=== PATIENT | male | born 1950 | race Caucasian/White ===

== ENCOUNTER → 2016-02-16 | Outpatient (CLI) | payer BC ==
[~2016-02-16] MED LIST: ALBU2.5V4 NEB; AMLO10TA2 PO; AMOX1TAB12 PO; ASPI-983 PO; CETI10TA20 PO; FOLI0.4T2 PO; GINK500C PO; METF500T4 PO; MULT-35 PO; OLME1TAB24 PO; PRED10TA22 PO; RT-ALBUINH IH; RT-ALBUTEROL SULF 2.5 MG/3 ML PRE-MIX VIAL INH ONE; [UNRECOGNIZED DRUG - CODE] PO
--- OUTSIDE RECORDS SUMMARY | 2016-02-16 09:30 | XMS REPORT | Continuity of Care Document ---
Author Author [facility] Organization [facility] Address Unknown Phone Unavailable Care Team Providers Care Landing Gear Mechanic Name Role Phone EDDIE KELLEY DO PCP Insurance Providers Payer Name Policy Number Subscriber Name Relationship [facility] [id number] Estelle Putnam 01 Advance Directives Directive Response Recorded Date/Time Advance Directives No 01/24/16 8:53am Health Care Power of Hold Worker No 01/24/16 8:53am Resuscitation Status Full Code 01/24/16 8:53am Problems No problem information available. Medications Current Home Medications Medication Dose Units Route Directions Days/Qty Instructions Start Date Metformin Hcl 500 Mg 500 Mg Oral Twice A Day 01/24/16 Amlodipine Besylate 10 Mg 10 Mg Oral Daily 01/24/16 Olmesartan/Hydrochlorothiazide 1 Each 1 Each Oral Daily 01/24/16 Albuterol Sulfate 8.5 Gm 1-2 Puff Inhalation Four Times Daily Social History Social History Problem Response Recorded Date/Time Alcohol Use Occasionally Uses 01/24/2016 8:53am Recreational Drug Use No 01/24/2016 8:53am Recent Foreign Travel No 01/24/2016 8:52am Recent Infectious Disease Exposure No 01/24/2016 8:52am Sexually Transmitted Disease No 01/24/2016 8:53am HIV/AIDS No 01/24/2016 8:53am Smoking Status Former Smoker 01/24/2016 8:53am Recent Hopitalizations No 01/24/2016 8:53am Sexually Transmitted Disease No 01/24/2016 8:53am Query Response Start Date Stop Date Smoking Status Former Smoker Hospital Discharge Instructions No hospital discharge instructions. Plan of Care Discharge Date 01/24/16 9:08am Prescriptions See Medication Section Functional Status No functional status results. Allergies, Adverse Reactions, Alerts No known allergies. Immunizations No immunization records. Vital Signs Acute Vital Signs Vital Response Date/Time Height (Feet) 5 feet 01/24/2016 8:46am Height (Inches) 8.00 inches 01/24/2016 8:46am Height (Calculated Centimeters) 172.434104 cm 01/24/2016 8:46am Weight (Pounds) 207 pounds 01/24/2016 8:46am Weight (Ounces) 0.0 oz 01/24/2016 8:46am Weight (Calculated Grams) 07095.62 gm 01/24/2016 8:46am Weight (Calculated Kilograms) 93.622880 kilograms 01/24/2016 8:46am Calculated BMI 31.5 01/24/2016 8:46am Results No known relevant diagnostic tests, laboratory data and/or discharge summary. Procedures No known history of procedures. Encounters Encounter Location Arrival/Admit Date Discharge/Depart Date Attending Provider Departed Clinic [facility] 01/24/16 8:43am 01/24/16 9: 08am KRISTAL RUIZ DO
== END ==
LOC: EDUNIT# 01-28 13:00 → RT 09:27
PROVIDERS: ATTEND Internal Medicine Critical Care Medicine
DX: R91.8 Other nonspecific abnormal finding of lung field (principal)
CPT/HCPCS: 94060; 94640; 94726; 94729

== ENCOUNTER 2016-02-25 10:30 | Inpatient (IN) | payer BC ==
[~2016-02-25] VITALS: Ht 172.7 cm; Wt 95.4 kg
[~2016-02-25 10:30] MED LIST changes: -ALBU2.5V4 NEB; -AMOX1TAB12 PO; -ASPI-983 PO; -CETI10TA20 PO; -FOLI0.4T2 PO; -GINK500C PO; -MULT-35 PO; -PRED10TA22 PO; -RT-ALBUTEROL SULF 2.5 MG/3 ML PRE-MIX VIAL INH ONE; -[UNRECOGNIZED DRUG - CODE] PO
[2016-02-25] MEDS ORDERED: MEROPENEM 1,000 MG in NORMAL SALINE (BAXTER MINI) 100 ML IV ONE ×2 (10:45→11:13)
[2016-02-25] MEDS ORDERED: VANCOMYCIN IV ADD-VANTAGE 1,000 MG in SODIUM CHLORIDE (ADD-VANTAGE) 250 ML IV ONE (10:45)
--- OUTSIDE RECORDS SUMMARY | 2016-02-25 11:03 | XMS REPORT | Continuity of Care Document ---
Author Author [facility] Organization [facility] Address Unknown Phone Unavailable Care Team Providers Care Skidway Worker Name Role Phone EDDIE KELLEY DO PCP Insurance Providers Payer Name Policy Number Subscriber Name Relationship [facility] [id number] Estelle Putnam 01 Advance Directives Directive Response Recorded Date/Time Advance Directives No 01/24/16 8:53am Health Care Power of Paperhanger Pipe No 01/24/16 8:53am Resuscitation Status Full Code [...] 8.00 inches 01/24/2016 8:46am Height (Calculated Centimeters) 172.503578 cm 01/24/2016 8:46am Weight (Pounds) 207 pounds 01/24/2016 8:46am Weight (Ounces) 0.0 oz 01/24/2016 8:46am Weight (Calculated Grams) 99287.62 gm 01/24/2016 8:46am Weight (Calculated Kilograms) 93.946763 kilograms 01/24/2016 8:46am Calculated BMI 31.5 01/24/2016 8:46am Results No known relevant diagnostic tests, laboratory data and/or discharge summary. Procedures No known history of procedures. Encounters Encounter Location Arrival/Admit Date Discharge/Depart Date Attending Provider Departed Clinic [facility] 01/24/16 8:43am 01/24/16 9: 08am KRISTAL RUIZ DO
[2016-02-25] MEDS ORDERED: methylPREDNISolone 40 MG/ML (Solu-MEDROL) VIAL IV SCH (12:00)
--- OUTSIDE RECORDS SUMMARY | 2016-02-25 12:38 | XMS REPORT | Continuity of Care Document ---
Author Author [facility] Organization [facility] Address Unknown Phone Unavailable Care Team Providers Care Talent Development Director Name Role Phone EDDIE KELLEY DO PCP Insurance Providers Payer Name Policy Number Subscriber Name Relationship [facility] [id number] Estelle Putnam 01 Advance Directives Directive Response Recorded Date/Time Advance Directives No 01/24/16 8:53am Health Care Power of Mat Worker No 01/24/16 8:53am Resuscitation Status Full [...] 8.00 inches 01/24/2016 8:46am Height (Calculated Centimeters) 172.744973 cm 01/24/2016 8:46am Weight (Pounds) 207 pounds 01/24/2016 8:46am Weight (Ounces) 0.0 oz 01/24/2016 8:46am Weight (Calculated Grams) 64871.62 gm 01/24/2016 8:46am Weight (Calculated Kilograms) 93.561113 kilograms 01/24/2016 8:46am Calculated BMI 31.5 01/24/2016 8:46am Results No known relevant diagnostic tests, laboratory data and/or discharge summary. Procedures No known history of procedures. Encounters Encounter Location Arrival/Admit Date Discharge/Depart Date Attending Provider Departed Clinic [facility] 01/24/16 8:43am 01/24/16 9: 08am KRISTAL RUIZ DO
[2016-02-25 13:00] VITALS: BP 152/86
[2016-02-25] MEDS ORDERED: ALBU2.5V4 NEB (13:14)
[2016-02-25] MEDS ORDERED: AMOX1TAB12 PO (13:14)
[2016-02-25] MEDS ORDERED: VANCOMYCIN INJECTION 2,000 MG in NS IV 500 ML 500 ML IV NR (13:15)
--- NOTE | 2016-02-25 13:26 | Pulmonary Consultation ---
History of Present Illness History of Present Illness Date of Consultation 02/25/16 13:15 Date of Admission 02/25/16 History of Present Illness 65 yo male who was seen in our office today d/t failure of outpatient treatment for pneumonia. (He was directly admitted to floor) He had been treated with Levaquin, azithromycin, and Omnicef and presented today with c/o worsening cough /wheeze, increase shortness of breath, and reported low grade fever at home for two days. Pt ambulated in office today showed oxygen saturation levels of 86% on RA. Patient was placed on oxygen and given 125mg Solumedrol, IM and breathing treatment. Spoke with Dr. Leyva and with Dr. Saez who has graciously agreed to admit pt. Previous CT had shown RONNIE lung mass with MLA; pt was bronched on 01/28/16 w/ebus. Allergies and Home Medications Allergies Coded Allergies: No Known Drug Allergies (Unverified , 01/24/16) Home Medications Albuterol Sulfate 8.5 Gm Hfa.aer.ad 2 PUFF IH QID PRN PRN SHORTNESS OF BREATH ( Reported) Albuterol Sulfate 2.5 Mg/3 Ml Vial.neb 2.5 MG NEB Q6H PRN PRN WHEEZING (Reported ) Amlodipine Besylate 10 Mg Tablet 10 MG PO DAILY (Reported) Aspirin 81 Mg Tablet.dr 81 MG PO DAILY (Reported) Cetirizine HCl 10 Mg Tablet 10 MG PO HS (Reported) Folic Acid 0.4 Mg Tablet 0.4 MG PO DAILY (Reported) Ginkgo Biloba 500 Mg Capsule 500 MG PO DAILY (Reported) Guaifenesin/Dextromethorphan 1 Each Tablet 1 TAB PO HS (Reported) Metformin HCl 500 Mg Tablet 500 MG PO BID (Reported) Multivitamin 1 Each Tablet 1 TAB PO DAILY (Reported) Olmesartan/Hydrochlorothiazide 1 Each Tablet 1 TAB PO DAILY (Reported) Past Plhroqx-Agayjy-Xffwxp Hx Patient Social History Alcohol Use: Denies Use Recreational Drug Use: No Smoking Status: Former Smoker Type Used: Cigarettes Recent Foreign Travel: No Contact w/Someone Who Travel: No Recent Hopitalizations: No Immunizations Up To Date Date of Pneumonia Vaccine: Jan 23, 2014 Date of Influenza Vaccine: Oct 25, 2015 Seasonal Allergies Seasonal Allergies: Yes (MILD) Surgeries HX Surgeries: Yes (HERNIA REPAIR) Respiratory Hx Respiratory Disorders: Yes (COUGH-LUNG MASS) Respiratory Disorders: Pneumonia Cardiovascular Hx Cardiac Disorders: Yes Cardiac Disorders: Hypertension Neurological Hx Neurological Disorders: No Reproductive System Hx Reproductive Disorders: No Sexually Transmitted Disease: No HIV/AIDS: No Genitourinary Hx Genitourinary Disorders: Yes (POSSIBLE PROSTATE) Genitourinary Disorders: Prostate Problems Gastrointestinal Hx Gastrointestinal Disorders: Yes (OCCASIONAL ) Gastrointestinal Disorders: Gastroesophageal Reflux, Polyps Musculoskeletal Hx Musculoskeletal Disorders: No Endocrine Hx Endocrine Disorders: Yes Endocrine Disorders: Diabetes, Non-Insulin dep HEENT HX ENT Disorders: Yes (GLASSES) Loss of Vision: Bilateral Hearing Impairment: Denies Cancer Hx Cancer: No Psychosocial Hx Psychiatric Problems: No Integumentary HX Skin/Integumentary Disorder: No Blood Transfusions Hx Blood Disorders: No Review of Systems Constitutional: : Chills: Fever: Sweats: Weakness Eyes: No: Conjunctivae inflammation, Eyelid inflammation, Other, Pain, Redness , Vision change ENT: No: Ear discharge, Ear pain, Mouth pain, Mouth swelling, Nose congestion, Nose discharge, Nose pain, Other, Throat pain, Throat swelling Respiratory: : Cough: SOB with excertion: Shortness of breath: Sputum (clear to yellow ): Wheezing: Wheezing Cardiovascular: No: Chest Pain, Edema, Lt Headedness, Orthopnea, Other, Palpitations, Paroxysmal Noc. Dyspnea Gastrointestinal: No: Abdominal Pain, Constipation, Diarrhea, Hematochezia, Melena, Nausea, Other, Vomiting Genitourinary: No Dysuria, No Frequency, No Incontinence, No Hematuria, No Retention, No Other Musculoskeletal: No: arm pain, back pain, foot pain, hand pain, leg pain, neck pain, other, shoulder pain Skin: No: Bruising, Jaundice, Lesions, Other, Rash Neurological: No: Change in speech, Confusion, Incoordination, Numbness, Other , Seizures, Weakness Exam Exam General Appearance: WD/WN Anxious Mild Distress HEENT: PERRL/EOMI Neck: Full Range of Motion Normal Inspection Non Tender Supple Respiratory: Chest Non Tender No Accessory Muscle Use Crackles Decreased Breath Sounds Expiration Wheezing Cardiovascular: Tachycardia Capillary Refill: Less Than 3 Seconds Gastrointestinal: normal bowel sounds non tender soft Extremity: Normal Capillary Refill Normal Inspection Normal Range of Motion Non Tender No Calf Tenderness No Pedal Edema Neurologic/Psychiatric: Alert Oriented x3 No Motor/Sensory Deficits Normal Mood/Affect reimbursement liaison II-XII Norm as Tested Skin: Normal Color Warm/Dry Assessment/Plan Assessment/Plan Pneumonia - spoke with Dr. Leyva regarding treatment plan -kulkarni cx -cbc w/diff -cmp -mag/phos -Merrem and Vanco -cxr -PREVIOUS TEST: CT showed RONNIE lung mass with MLA; pt was bronched on 01/28/16 w/ebus . -I/S -Influenza a/b swab Dyspnea -duoneb q6hr Hypoxemia -wear oxygen to keep sats >92% DVT/VTE- protonix and scd MEENU LAMAS APRN Feb 25, 2016 13:26
[2016-02-25] MEDS ORDERED: GINK500C PO (13:31)
[2016-02-25] MEDS ORDERED: [UNRECOGNIZED DRUG - CODE] PO (13:31)
[2016-02-25] MEDS ORDERED: MULT-35 PO (13:31)
[2016-02-25] MEDS ORDERED: FOLI0.4T2 PO (13:31)
[2016-02-25] MEDS ORDERED: ASPI-983 PO (13:31)
[2016-02-25] MEDS ORDERED: CETI10TA20 PO (13:31)
[2016-02-25 13:36] LABS: BILIRUBIN,URINE NEGATIVE (NEGATIVE); KETONES,URINE NEGATIVE (NEGATIVE); LEUKOCYTE ESTERASE ,URINE NEGATIVE (NEGATIVE); NITRITE,URINE NEGATIVE (NEGATIVE); PH,URINE 7 (5-9); PROTEIN,URINE NEGATIVE (NEGATIVE); UROBILINOGEN,URINE NORMAL (NORMAL)
--- NOTE | 2016-02-25 13:43 | Diagnostic Imaging Report ---
INDICATION: Pneumonia. TECHNIQUE: PA and lateral views of the chest were obtained. COMPARISON: 01/26/2016. FINDINGS: The overall heart size and pulmonary vascularity are now within normal limits. There is abnormal increased density in the left hilum. This region was obscured by infiltrate on the previous study. No pneumothorax is identified. There is no significant pleural fluid or other acute abnormality. IMPRESSION: Overall improvement in aeration of the lungs with residual abnormal increased density in the left hilum. While this could be due to residual infiltrate, a left perihilar mass or adenopathy is not excluded. This could be further assessed with bronchoscopy or followup CT imaging of the chest. Dictated by: Dictated on workstation # [id number]
[2016-02-25 13:51] LABS: WBC,URINE RARE /HPF
[2016-02-25] MEDS ORDERED: CATHETER FLUSH 10 ML SYR IV PRN (14:00)
[2016-02-25 14:11] LABS: BASOPHILS % (AUTO) 1 % (0-10); EOSINOPHILS # (AUTO) 0.1 10^3/uL (0.0-0.3); EOSINOPHILS % (AUTO) 2 % (0-10); LYMPHOCYTES # (AUTO) 0.9 X 10^3 (1.0-4.0); LYMPHOCYTES % (AUTO) 16 % (12-44); MEAN CORPUSCULAR HEMOGLOBIN 29 PG (25-34); MEAN CORPUSCULAR HGB CONC 35 G/DL (32-36); MEAN CORPUSCULAR VOLUME 84 FL (80-99); MONOCYTES # (AUTO) 0.1 X 10^3 (0.0-1.0); MONOCYTES % (AUTO) 1 % (0-12); NEUTROPHILS # (AUTO) 4.5 X 10^3 (1.8-7.8); NEUTROPHILS % (AUTO) 81 % (42-75); PLATELET COUNT 233 10^3/uL (130-400); RED BLOOD COUNT 4.72 10^6/uL (4.35-5.85); RED CELL DISTRIBUTION WIDTH 15.7 % (10.0-14.5); WHITE BLOOD COUNT 5.5 10^3/uL (4.3-11.0)
[2016-02-25] MEDS: NS IV 1000 ML 1,000 ML IV SCH (14:15)
[2016-02-25] MEDS: RT-ALBUTEROL/IPRATROPIUM 3 ML (DUONEB) VIAL INH SCH ×2 (14:19→19:55)
[2016-02-25 14:27] LABS: ANISOCYTOSIS SLIGHT; BAND NEUTROPHILS 0 %; BASOPHILS % (MANUAL) 1 %; EOSINOPHILS % (MANUAL) 2 %; LYMPHOCYTES % (MANUAL) 15 %; NEUTROPHILS % (MANUAL) 82 %
[2016-02-25 14:28] LABS: ALANINE AMINOTRANSFERASE 21 U/L (0-55); ALBUMIN 4.1 G/DL (3.2-4.5); ANION GAP 10 MMOL/L (5-14); ASPARTATE AMINO TRANSFERASE 15 U/L (5-34); BILIRUBIN,TOTAL 0.4 MG/DL (0.1-1.0); BLOOD UREA NITROGEN 12 MG/DL (7-18); BUN/CREATININE RATIO 14; CALCIUM 9.5 MG/DL (8.5-10.1); CARBON DIOXIDE 25 MMOL/L (21-32); CHLORIDE 101 MMOL/L (98-107); CREATININE SERUM 0.88 MG/DL (0.60-1.30); GFR ESTIMATED > 60; GLUCOSE 214 MG/DL (70-105); PHOSPHORUS 1.8 MG/DL (2.3-4.7); SODIUM 136 MMOL/L (135-145); TOTAL PROTEIN 7.2 G/DL (6.4-8.2)
[2016-02-25 16:00] VITALS: BP 161/82
[2016-02-25] MEDS: metFORMIN 500 MG (GLUCOPHAGE) TAB PO SCH (16:05)
[2016-02-25] MEDS: inSUlin ASPART (NovoLOG) 1 UNIT/0.01 ML (CHARGE PER UNIT) SC SCH ×2 (16:06→21:19)
--- NOTE | 2016-02-25 16:23 | History & Physical-Hospitalist ---
HPI History of Present Illness: HPI/Chief Complaint this is a 65-year-old white male who began having upper respiratory tract difficulties and symptoms in mid December 2015. Workup showed a left upper lobe lung mass. E bus and bronchoscopy were negative for malignancy or evidently infection. He has been treated with Zithromax, Omnicef, Levaquin and had begun to get better. He had begun weight gaining weight again in 2 weeks ago was not completely well but much better. About 3 days ago he began having increased shortness of breath coughing and orthopnea. His cough is worse when lying down. He does note that they have mold in his bathroom at home. He was seen by Dr. Leyva and admitted today because of recurrent pneumonia in the left upper lobe and hypoxia. Exam Limitations: no limitations Date Seen 02/25/16 Attending Physician Bronwyn Saez DO PCP Juve Lundberg DO Referring Physician Date of Admission Feb 25, 2016 at 12:30 Home Medications & Allergies Home Medications Reviewed patient Home Medication Reconciliation Form Allergies Coded Allergies: No Known Drug Allergies (Unverified , 01/24/16) Past Ccagcgi-Xxqwgb-Jgugzz Hx Patient Social History Marrital Status: Employed/Student: employed Alcohol Use: Denies Use Recreational Drug Use: No Smoking Status: Former Smoker Type Used: Cigarettes Physical Abuse Screen: No Sexual Abuse: No Recent Foreign Travel: No Contact w/other who traveled: No Recent Hopitalizations: No Recent Infectious Disease Expo: No Immunizations Up To Date Date of Pneumonia Vaccine: Jan 23, 2014 Date of Influenza Vaccine: Oct 25, 2015 Seasonal Allergies Seasonal Allergies: Yes (MILD) Surgeries HX Surgeries: Yes (HERNIA REPAIR) Respiratory Hx Respiratory Disorders: Yes (COUGH-LUNG MASS) Cardiovascular Hx Cardiovascular Disorders: Yes Cardiac Disorders: Hypertension Neurological Hx Neurological Disorders: No Reproductive System Hx Reproductive Disorders: No Sexually Transmitted Disease: No HIV/AIDS: No Genitourinary Hx Genitourinary Disorders: Yes (POSSIBLE PROSTATE) Genitourinary Disorders: Prostate Problems Gastrointestinal Hx Gastrointestinal Disorders: Yes (OCCASIONAL ) Gastrointestinal Disorders: Gastroesophageal Reflux, Polyps, Hiatal Hernia Musculoskeletal Hx Musculoskeletal Disorders: No Endocrine Hx Endocrine Disorders: Yes Endocrine Disorders: Diabetes, Non-Insulin dep HEENT HX ENT Disorders: Yes (GLASSES) Loss of Vision: Bilateral Hearing Impairment: Denies Cancer Hx Cancer: No Psychosocial Hx Psychiatric Problems: No Integumentary HX Skin/Integumentary Disorder: No Blood Transfusions Hx Blood Disorders: No Family Medical History Significant Family History: Heart Disease Review of Systems Constitutional: weight loss other (cough) EENTM: no symptoms reported Respiratory: cough dyspnea on exertion short of breath wheezing Cardiovascular: no symptoms reported Gastrointestinal: no symptoms reported Genitourinary: hesitancy Musculoskeletal: no symptoms reported Skin: no symptoms reported Psychiatric/Neurological: No Symptoms Reported Physical Exam Physical Exam Vital Signs Vital Sign - Last 12Hours 02/25/16 02/25/16 13:30 14:20 Pulse Ox 88 O2 Delivery Nasal Cannula O2 Flow Rate 2.00 Capillary Refill : Less Than 3 Seconds General Appearance: No Apparent Distress WD/WN HEENT: Normal ENT Inspection Neck: Supple Respiratory: Crackles Wheezing Cardiovascular: Regular Rate, Rhythm No Gallop No Murmur Gastrointestinal: Non Tender Soft Back: No CVA Tenderness Extremity: No Calf Tenderness Neurologic/Psychiatric: Alert Oriented x3 No Motor/Sensory Deficits Normal Mood/Affect slipper maker II-XII Norm as Tested Skin: Normal Color Warm/Dry Lymphatic: No Adenopathy Results Results/Procedures Lab Laboratory Tests 02/25/16 14:00 Assessment/Plan Admission Diagnosis 1. pneumonia-left perihilar infiltrate. possibly hilar adenopathy. patient is afebrile, white count is normal , however he has had progressive hypoxia and symptoms. situation could be sent to the reactive airway disease secondary to fungal infection. antibiotics per Dr. Leyva. 2. Hypertension 3. Type II diabetes Clinical Quality Measures DVT/VTE Risk/Contraindication: Risk Factor Score Per Nursin RFS Level Per Nursing on Admit: 4+=Very High RAEGAN NEFF MD Feb 25, 2016 16:23
[2016-02-25] MEDS: MEROPENEM 500 MG/NS 100 ML IVPB IV SCH ×2 (17:08)
[2016-02-25] MEDS: ENOXAPARIN 40 MG/0.4 ML (LOVENOX) SYR SC SCH (17:12)
[2016-02-25 20:00] VITALS: BP 157/82
[2016-02-25] MEDS: methylPREDNISolone 40 MG/ML (Solu-MEDROL) VIAL IV SCH (21:18)
[2016-02-25] MEDS ORDERED: ZOLPIDEM 5 MG (AMBIEN) TAB PO PRN (21:45)
[2016-02-26] VITALS: BP 124/76
[2016-02-26] MEDS: NS IV 1000 ML 1,000 ML IV SCH ×2 (00:05→07:08)
[2016-02-26] MEDS: MEROPENEM 500 MG/NS 100 ML IVPB IV SCH ×8 (00:13→18:30)
[2016-02-26] MEDS: VANCOMYCIN 1500 MG/NS 500 ML IVPB IV SCH ×4 (01:41→14:18)
[2016-02-26] MEDS: RT-ALBUTEROL/IPRATROPIUM 3 ML (DUONEB) VIAL INH SCH ×4 (02:27→21:05)
[2016-02-26] MEDS: methylPREDNISolone 40 MG/ML (Solu-MEDROL) VIAL IV SCH ×4 (03:42→20:46)
[2016-02-26 04:00] VITALS: BP 127/65
[2016-02-26] MEDS: PANTOPRAZOLE 40 MG (PROTONIX) TAB PO SCH (06:26)
[2016-02-26] MEDS: metFORMIN 500 MG (GLUCOPHAGE) TAB PO SCH ×2 (06:26→16:58)
[2016-02-26] MEDS: inSUlin ASPART (NovoLOG) 1 UNIT/0.01 ML (CHARGE PER UNIT) SC SCH ×4 (06:26→20:46)
[2016-02-26 08:00] VITALS: BP 159/83
[2016-02-26] MEDS: ASPIRIN E.C. 81 MG (ECOTRIN) TAB PO SCH (08:51)
[2016-02-26] MEDS: OLMESARTAN 20 MG (BENICAR) TABLET PO SCH (08:51)
[2016-02-26] MEDS: amLODIPine 10 MG (NORVASC) TAB PO SCH (08:51)
[2016-02-26] MEDS: HYDROCHLOROTHIAZIDE 25 MG (HCTZ) TAB PO SCH (08:51)
[2016-02-26] MEDS ORDERED: HYDROCHLOROTHIAZIDE PO SCH (09:00)
[2016-02-26] MEDS ORDERED: OLMESARTAN PO SCH (09:00)
[2016-02-26] MEDS ORDERED: [UNRECOGNIZED DRUG - OTHER] PO SCH (09:00)
--- NOTE | 2016-02-26 11:48 | Progress Note-Hospitalist ---
Subjective HPI/CC On Admission this is a 65-year-old white male who began having upper respiratory tract difficulties and symptoms in mid December 2015. Workup showed a left upper lobe lung mass. E bus and bronchoscopy were negative for malignancy or evidently infection. He has been treated with Zithromax, Omnicef, Levaquin and had begun to get better. He had begun weight gaining weight again in 2 weeks ago was not completely well but much better. About 3 days ago he began having increased shortness of breath coughing and orthopnea. His cough is worse when lying down. He does note that they have mold in his bathroom at home. He was seen by Dr. Leyva and admitted today because of recurrent pneumonia in the left upper lobe and hypoxia. Date Seen 02/26/16 Subjective/Events-last exam patient says he is feeling better today. He continues to be wheezy. He feels less so than before. He does note that he does have a lot of mold in his house. He discussed that his high blood sugars are related to the high steroids that he is on Review of Systems Pulmonary: Dyspnea Cough Objective Exam Vital Signs Vital Sign - Last 12Hours 02/25/16 02/25/16 13:00 13:30 Temp 97.0 Pulse 91 Resp 20 B/P 152/86 Pulse Ox 91 O2 Delivery Room Air O2 Flow Rate 2.00 Capillary Refill : Less Than 3 Seconds General Appearance: WD/WN HEENT: Normal ENT Inspection Respiratory: Crackles Rhonci Wheezing Cardiovascular: Regular Rate, Rhythm No Gallop No Murmur Gastrointestinal: Soft Results/Procedures Lab Laboratory Tests 02/25/16 14:00 Assessment/Plan Assessment and Plan Assess & Plan/Chief Complaint 1. pneumonia-left perihilar infiltrate. possibly hilar adenopathy. patient is afebrile, white count is normal , however he has had progressive hypoxia and symptoms. situation could be secondary to reactive airway disease secondary to fungal infection. antibiotics per Dr. Leyva. 2. Hypertension 3. Type II diabetes-out of control secondary to steroids 4. Possible spirochetes in the sputum consider adding macrolide RAEGAN NEFF MD Feb 26, 2016 11:48
[2016-02-26 11:59] VITALS: BP 132/68
[2016-02-26 15:49] VITALS: BP 138/71
[2016-02-26] MEDS: ENOXAPARIN 40 MG/0.4 ML (LOVENOX) SYR SC SCH (16:56)
[2016-02-26 19:01] VITALS: BP 154/81
[2016-02-27] VITALS: BP 147/74
[2016-02-27] MEDS: MEROPENEM 500 MG/NS 100 ML IVPB IV SCH ×8 (00:15→17:34)
[2016-02-27] MEDS: RT-ALBUTEROL/IPRATROPIUM 3 ML (DUONEB) VIAL INH SCH ×4 (02:45→20:11)
[2016-02-27] MEDS: methylPREDNISolone 40 MG/ML (Solu-MEDROL) VIAL IV SCH ×4 (03:23→21:44)
[2016-02-27] MEDS: VANCOMYCIN 1500 MG/NS 500 ML IVPB IV SCH ×4 (03:23→14:08)
[2016-02-27 04:00] VITALS: BP 146/75
[2016-02-27] MEDS: inSUlin ASPART (NovoLOG) 1 UNIT/0.01 ML (CHARGE PER UNIT) SC SCH ×4 (06:29→21:45)
[2016-02-27] MEDS: metFORMIN 500 MG (GLUCOPHAGE) TAB PO SCH ×2 (06:30→16:04)
[2016-02-27] MEDS: PANTOPRAZOLE 40 MG (PROTONIX) TAB PO SCH (06:30)
[2016-02-27] MEDS ORDERED: ANTACID SUSP 30 ML UDC (MYLANTA) PO PRN (07:00)
[2016-02-27 08:00] VITALS: BP 165/85
[2016-02-27] MEDS: OLMESARTAN 20 MG (BENICAR) TABLET PO SCH (09:11)
[2016-02-27] MEDS: HYDROCHLOROTHIAZIDE 25 MG (HCTZ) TAB PO SCH (09:11)
[2016-02-27] MEDS: ASPIRIN E.C. 81 MG (ECOTRIN) TAB PO SCH (09:11)
[2016-02-27] MEDS: amLODIPine 10 MG (NORVASC) TAB PO SCH (09:12)
[2016-02-27 12:00] VITALS: BP 127/70
--- NOTE | 2016-02-27 12:29 | Progress Note-Hospitalist ---
Subjective HPI/CC On Admission this is a 65-year-old white male who began having upper respiratory tract difficulties and symptoms in mid December 2015. Workup showed a left upper lobe lung mass. E bus and bronchoscopy were negative for malignancy or evidently infection. He has been treated with Zithromax, Omnicef, Levaquin and had begun to get better. He had begun weight gaining weight again in 2 weeks ago was not completely well but much better. About 3 days ago he began having increased shortness of breath coughing and orthopnea. His cough is worse when lying down. He does note that they have mold in his bathroom at home. He was seen by Dr. Leyva and admitted today because of recurrent pneumonia in the left upper lobe and hypoxia. Date Seen 02/27/16 Subjective/Events-last exam H and is feeling better today. Had one paroxysm of coughing this morning. Review of Systems Pulmonary: Dyspnea Cough Objective Exam Vital Signs Vital Sign - Last 12Hours 02/25/16 02/25/16 13:00 13:30 Temp 97.0 Pulse 91 Resp 20 B/P 152/86 Pulse Ox 91 O2 Delivery Room Air O2 Flow Rate 2.00 Capillary Refill : Less Than 3 Seconds General Appearance: No Apparent Distress WD/WN HEENT: Normal ENT Inspection Neck: Supple Respiratory: Crackles Expiration (improved) Wheezing Cardiovascular: Tachycardia Gastrointestinal: Soft Assessment/Plan Assessment and Plan Assess & Plan/Chief Complaint 1. pneumonia-left perihilar infiltrate. possibly hilar adenopathy. patient is afebrile, white count is normal , however he has had progressive hypoxia and symptoms. situation could be secondary to reactive airway disease secondary to fungal infection. antibiotics per Dr. Leyva.patient is improved today so we' ll drop the steroids. Will recheck labs in the morning and chest x-ray 2. Hypertension 3. Type II diabetes-out of control secondary to steroids 4. Possible spirochetes in the sputum consider adding macrolide RAEGAN NEFF MD Feb 27, 2016 12:29
[2016-02-27] MEDS ORDERED: TROUGH ORDER-PHARMACY XX NR (13:00)
--- NOTE | 2016-02-27 13:42 | Diagnostic Imaging Report ---
Indication: Followup pneumonia. Comparison: 02/25/2016. Findings: Two views of the chest are obtained. Heart size is normal. The pulmonary vessels appear unremarkable. There is no pneumothorax or pleural fluid suspected. There is persistent abnormal left perihilar mass-like density which appears minimally improved to similar to the prior study. There is new minimal linear atelectasis in the lateral left lung base. The lungs are otherwise clear. No pleural fluid is suspected. The osseous structures appear unremarkable. Impression: Minimally improved to stable masslike density over the left hilum remains indeterminate. This may be secondary to slowly resolving infiltrate although an underlying mass is difficult to exclude. Continued followup is suggested. Dictated by: Dictated on workstation # [id number]
[2016-02-27 16:00] VITALS: BP 140/77
[2016-02-27] MEDS: ENOXAPARIN 40 MG/0.4 ML (LOVENOX) SYR SC SCH (16:04)
[2016-02-27 20:00] VITALS: BP 135/75
[2016-02-28 00:01] VITALS: BP 146/80
[2016-02-28] MEDS: MEROPENEM 500 MG/NS 100 ML IVPB IV SCH ×4 (00:03→06:48)
[2016-02-28] MEDS ORDERED: VANCOMYCIN 1,750 MG/NS 500 ML IVPB IV SCH ×2 (02:00)
[2016-02-28] MEDS: RT-ALBUTEROL/IPRATROPIUM 3 ML (DUONEB) VIAL INH SCH ×3 (02:52→09:42)
[2016-02-28] MEDS: methylPREDNISolone 40 MG/ML (Solu-MEDROL) VIAL IV SCH ×2 (03:15→09:52)
[2016-02-28 04:00] VITALS: BP 160/71
[2016-02-28] MEDS: PANTOPRAZOLE 40 MG (PROTONIX) TAB PO SCH (06:49)
[2016-02-28] MEDS: inSUlin ASPART (NovoLOG) 1 UNIT/0.01 ML (CHARGE PER UNIT) SC SCH (06:49)
[2016-02-28] MEDS: metFORMIN 500 MG (GLUCOPHAGE) TAB PO SCH (06:49)
[2016-02-28 07:08] LABS: BASOPHILS % (AUTO) 0 % (0-10); EOSINOPHILS % (AUTO) 0 % (0-10); LYMPHOCYTES # (AUTO) 0.8 X 10^3 (1.0-4.0); LYMPHOCYTES % (AUTO) 13 % (12-44); MEAN CORPUSCULAR HEMOGLOBIN 29 PG (25-34); MEAN CORPUSCULAR HGB CONC 34 G/DL (32-36); MEAN CORPUSCULAR VOLUME 84 FL (80-99); MEAN PLATELET VOLUME 9.6 FL (7.4-10.4); MONOCYTES # (AUTO) 0.3 X 10^3 (0.0-1.0); MONOCYTES % (AUTO) 4 % (0-12); NEUTROPHILS # (AUTO) 5.1 X 10^3 (1.8-7.8); NEUTROPHILS % (AUTO) 83 % (42-75); PLATELET COUNT 186 10^3/uL (130-400); RED BLOOD COUNT 4.28 10^6/uL (4.35-5.85); RED CELL DISTRIBUTION WIDTH 15.7 % (10.0-14.5); WHITE BLOOD COUNT 6.1 10^3/uL (4.3-11.0)
[2016-02-28 07:32] LABS: ALANINE AMINOTRANSFERASE 24 U/L (0-55); ALBUMIN 3.7 G/DL (3.2-4.5); ANION GAP 7 MMOL/L (5-14); ASPARTATE AMINO TRANSFERASE 16 U/L (5-34); BILIRUBIN,TOTAL 0.4 MG/DL (0.1-1.0); BLOOD UREA NITROGEN 18 MG/DL (7-18); BUN/CREATININE RATIO 23; CALCIUM 8.4 MG/DL (8.5-10.1); CARBON DIOXIDE 25 MMOL/L (21-32); CHLORIDE 105 MMOL/L (98-107); GFR ESTIMATED > 60; GLUCOSE 183 MG/DL (70-105); POTASSIUM 3.8 MMOL/L (3.6-5.0); SODIUM 137 MMOL/L (135-145); TOTAL PROTEIN 6.1 G/DL (6.4-8.2)
[2016-02-28 07:42] LABS: ERYTHROCYTE SEDIMENTATION RATE 8 MM/HR (0-30)
--- NOTE | 2016-02-28 07:44 | Pulmonary Progress Note ---
Subjective Subjective/Events-last exam Pt feels much improved. Exam Exam Vital Signs Date Time Temp Pulse Resp B/P Pulse Ox O2 Delivery O2 Flow Rate FiO2 02/28/16 03:21 95 02/28/16 00:01 97.5 95 20 146/80 98 Room Air 02/27/16 21:00 Room Air 02/27/16 20:11 97 02/27/16 20:00 98.4 116 18 135/75 98 Room Air 02/27/16 16:00 97.9 115 18 140/77 94 Room Air 02/27/16 15:11 95 02/27/16 13:00 109 02/27/16 12:00 98.1 111 18 127/70 91 Room Air 02/27/16 09:36 92 02/27/16 09:00 94 Nasal Cannula 02/27/16 08:00 98.7 104 20 165/85 94 Room Air I & O 02/28/16 07:00 Intake Total 2237.5 ml Balance 2237.5 ml General Appearance: No Apparent Distress WD/WN HEENT: Normal ENT Inspection Neck: Supple Respiratory: Crackles Expiration (improved) Wheezing Cardiovascular: Tachycardia Capillary Refill: Less Than 3 Seconds Gastrointestinal: normal bowel sounds non tender soft Extremity: No Calf Tenderness Neurologic/Psychiatric: Alert Oriented x3 No Motor/Sensory Deficits Normal Mood/Affect shingle grader II-XII Norm as Tested Skin: Normal Color Warm/Dry Lymphatic: No Adenopathy Results Lab Laboratory Tests 02/28/16 06:58 Assessment/Plan Assessment/Plan Pneumonia -Luciano cultures, Influenza are negative Dyspnea -duoneb q6hr Hypoxemia -wear oxygen to keep sats >92% DVT/VTE- protonix and scd Pt is doing better. Cultures are negative. Pt is ok for discharge from pulmonary standpoint with steroid taper. No Abx needed at this point. F/u in office after CT of chest. Clinical Quality Measures DVT/VTE Risk/Contraindication: Risk Factor Score Per Nursin RFS Level Per Nursing on Admit: 4+=Very High KRISTAL RUIZ DO Feb 28, 2016 07:44 KRISTAL RUIZ DO Feb 28, 2016 07:44
[2016-02-28 08:00] VITALS: BP 161/86
[2016-02-28] MEDS ORDERED: PRED10TA22 PO (08:37)
--- NOTE | 2016-02-28 08:56 | Progress Note-Hospitalist ---
Progress Note HPI/CC on Admission this is a 65-year-old white male who began having upper respiratory tract difficulties and symptoms in mid December 2015. Workup showed a left upper lobe lung mass. E bus and bronchoscopy were negative for malignancy or evidently infection. He has been treated with Zithromax, Omnicef, Levaquin and had begun to get better. He had begun weight gaining weight again in 2 weeks ago was not completely well but much better. About 3 days ago he began having increased shortness of breath coughing and orthopnea. His cough is worse when lying down. He does note that they have mold in his bathroom at home. He was seen by Dr. Leyva and admitted because of recurrent pneumonia in the left upper lobe and hypoxia. He is doing much better today. He is not requiring oxygen while sitting in bed. His chest xray is much improved. He has minimal wheezing on the left side. AFVSS, Pleasant, O x 3 RRR, CTAB decreased breath sounds noted Progress Notes/Assess & Plan Date Seen 02/28/16 Admission Dx/Process 1. pneumonia 2. left upper lung mass 3. DM 4. HTN 5. hypoxia 6. Smoking history Diagonsis/Assessment & Plan 1. pneumonia 2. left upper lung mass 3. DM 4. HTN 5. hypoxia 6. Smoking history -ready for discharge today -will have prednisone taper as outpatient -f/u CT in 4-6 weeks to follow lung mass -f/u with Dr. Leyva as outpatient -f/u with Dr. Lundberg -will obtain oxygen desaturation walking test before discharge Final Diagnosis 1. pneumonia 2. left upper lung mass 3. DM 4. HTN 5. hypoxia 6. Smoking history ALONA GOINS DO Feb 28, 2016 08:56
[2016-02-28] MEDS: ASPIRIN E.C. 81 MG (ECOTRIN) TAB PO SCH (09:00)
[2016-02-28] MEDS: HYDROCHLOROTHIAZIDE 25 MG (HCTZ) TAB PO SCH (09:00)
[2016-02-28] MEDS: OLMESARTAN 20 MG (BENICAR) TABLET PO SCH (09:00)
[2016-02-28] MEDS: amLODIPine 10 MG (NORVASC) TAB PO SCH (09:00)
--- NOTE | 2016-02-28 09:33 | Discharge Summary-Hospitalist ---
Diagnosis/Chief Complaint Date of Admission Feb 25, 2016 at 12:30 Date of Discharge Discharge Date: Feb 28, 2016 Admission Diagnosis 1. pneumonia 2. left upper lung mass 3. DM 4. HTN 5. hypoxia 6. Smoking history Discharge Diagnosis 1. pneumonia 2. left upper lung mass 3. DM 4. HTN 5. hypoxia 6. Smoking history -ready for discharge today -will have prednisone taper as outpatient -f/u CT in 4-6 weeks to follow lung mass -f/u with Dr. Leyva as outpatient -f/u with Dr. Kelley -will obtain oxygen desaturation walking test before discharge Reason Hospital Visit/Course this is a 65-year-old white male who began having upper respiratory tract difficulties and symptoms in mid December 2015. Workup showed a left upper lobe lung mass. E bus and bronchoscopy were negative for malignancy or evidently infection. He has been treated with Zithromax, Omnicef, Levaquin and had begun to get better. He had begun weight gaining weight again in 2 weeks ago was not completely well but much better. About 3 days ago he began having increased shortness of breath coughing and orthopnea. His cough is worse when lying down. He does note that they have mold in his bathroom at home. He was seen by Dr. Leyva and admitted because of recurrent pneumonia in the left upper lobe and hypoxia. He is doing much better today. He is not requiring oxygen while sitting in bed. His chest xray is much improved. He has minimal wheezing on the left side. AFVSS, Pleasant, O x 3 RRR, CTAB decreased breath sounds noted this is a 65-year-old white male who began having upper respiratory tract difficulties and symptoms in mid December 2015. Workup showed a left upper lobe lung mass. E bus and bronchoscopy were negative for malignancy or evidently infection. He has been treated with Zithromax, Omnicef, Levaquin and had begun to get better. He had begun weight gaining weight again in 2 weeks ago was not completely well but much better. About 3 days ago he began having increased shortness of breath coughing and orthopnea. His cough is worse when lying down. He does note that they have mold in his bathroom at home. He was seen by Dr. Leyva and admitted because of recurrent pneumonia in the left upper lobe and hypoxia. He is doing much better today. He is not requiring oxygen while sitting in bed. His chest xray is much improved. He has minimal wheezing on the left side. Progress Notes/Assess & Plan Date Seen 02/28/16 Admission Dx/Process 1. pneumonia 2. left upper lung mass 3. DM 4. HTN 5. hypoxia 6. Smoking history Diagonsis/Assessment & Plan 1. pneumonia 2. left upper lung mass 3. DM 4. HTN 5. hypoxia 6. Smoking history -ready for discharge today -will have prednisone taper as outpatient -f/u CT in 4-6 weeks to follow lung mass -f/u with Dr. Leyva as outpatient -f/u with Dr. Kelley -will obtain oxygen desaturation walking test before discharge Final Diagnosis 1. pneumonia 2. left upper lung mass 3. DM 4. HTN 5. hypoxia 6. Smoking history Hospital course: Patient had an uneventful hospital course. Admitted due to failure of abx and noted lung masses versus infiltrate. Dr Leyva was consulted and placed on high dose of steroids. Overall status improved and was able to DC home. Close f/u with Dr Leyva and Dr Kelley for repeat CT scan due to lung mass questions. Discharge Summary Discharge Physical Examination Allergies: Coded Allergies: No Known Drug Allergies (Unverified , 01/24/16) Vitals & I&Os Vital Signs Date Time Temp Pulse Resp B/P Pulse Ox O2 Delivery O2 Flow Rate FiO2 02/28/16 08:00 96.7 111 18 161/86 94 Room Air 02/26/16 09:52 2.00 Hospital Course Labs (last 24 hrs) Laboratory Tests 02/27/16 11:06: Glucometer 234H 02/27/16 13:00: Vancomycin Level Trough 14.3 02/27/16 15:41: Glucometer 269H 02/27/16 20:51: Glucometer 196H 02/28/16 06:37: Glucometer 177H 02/28/16 06:58: Alanine Aminotransferase (ALT/SGPT) 24, Albumin 3.7, Alkaline Phosphatase 61, Anion Gap 7, Aspartate Amino Transf (AST/SGOT) 16, BUN/Creatinine Ratio 23, Basophils # (Auto) 0.0, Basophils (%) (Auto) 0, Blood Urea Nitrogen 18, Calcium Level 8.4L, Carbon Dioxide Level 25, Chloride Level 105, Creatinine 0.80, Eosinophils # (Auto) 0.0, Eosinophils (%) (Auto) 0, Erythrocyte Sedimentation Rate 8, Estimat Glomerular Filtration Rate > 60, Glucose Level 183H, Hematocrit 36L, Hemoglobin 12.2L, Lymphocytes # (Auto) 0.8L, Lymphocytes (%) (Auto) 13, Mean Corpuscular Hemoglobin 29, Mean Corpuscular Hemoglobin Concent 34, Mean Corpuscular Volume 84, Mean Platelet Volume 9.6, Monocytes # (Auto) 0.3, Monocytes (%) (Auto) 4, Neutrophils # (Auto) 5.1, Neutrophils (%) (Auto) 83H, Platelet Count 186, Potassium Level 3.8, Red Blood Count 4.28L, Red Cell Distribution Width 15.7H, Sodium Level 137, Total Bilirubin 0.4, Total Protein 6.1L, White Blood Count 6.1 Microbiology 02/25/16 Blood Culture - Preliminary, Resulted No growth 02/25/16 Gram Stain - Final, Complete 02/25/16 Sputum Culture - Final, Complete Usual/normal kathy isolated. Pending Labs Laboratory Tests 02/28/16 06:37: Glucometer 177 02/28/16 06:58: Alanine Aminotransferase (ALT/SGPT) 24, Albumin 3.7, Alkaline Phosphatase 61, Anion Gap 7, Aspartate Amino Transf (AST/SGOT) 16, BUN/Creatinine Ratio 23, Basophils # (Auto) 0.0, Basophils (%) (Auto) 0, Blood Urea Nitrogen 18, Calcium Level 8.4, Carbon Dioxide Level 25, Chloride Level 105, Creatinine 0.80, Eosinophils # (Auto) 0.0, Eosinophils (%) (Auto) 0, Erythrocyte Sedimentation Rate 8, Estimat Glomerular Filtration Rate > 60, Glucose Level 183, Hematocrit 36, Hemoglobin 12.2, Lymphocytes # (Auto) 0.8, Lymphocytes (%) (Auto) 13, Mean Corpuscular Hemoglobin 29, Mean Corpuscular Hemoglobin Concent 34, Mean Corpuscular Volume 84, Mean Platelet Volume 9.6, Monocytes # (Auto) 0.3, Monocytes (%) (Auto) 4, Neutrophils # (Auto) 5.1, Neutrophils (%) (Auto) 83, Platelet Count 186, Potassium Level 3.8, Red Blood Count 4.28, Red Cell Distribution Width 15.7, Sodium Level 137, TB Test (QFT) Interpretation [Pending ], TB Test (QFT) Mitogen Minus Nil [Pending], TB Test (QFT) Nil [Pending], TB Test (QFT) TB - Nil [Pending], Total Bilirubin 0.4, Total Protein 6.1, White Blood Count 6.1 Discharge Home Medications: Active Scripts Active Prednisone 10 Mg Tab.ds.pk 10 Mg PO DAILY Take 6 tabs(60mg)daily,decrease by 1 tab(10mg)every other day. Reported Guaifenesin-Dm 400-20 mg Cplt (Guaifenesin/Dextromethorphan) 1 Each Tablet 1 Tab PO HS Zyrtec (Cetirizine HCl) 10 Mg Tablet 10 Mg PO HS Folic Acid 0.4 Mg Tablet 0.4 Mg PO DAILY Ginkgo Biloba 500 Mg Capsule 500 Mg PO DAILY Daily Multiple Vitamin (Multivitamin) 1 Each Tablet 1 Tab PO DAILY Aspirin EC (Aspirin) 81 Mg Tablet.dr 81 Mg PO DAILY Albuterol Sulfate 2.5 Mg/3 Ml Vial.neb 2.5 Mg NEB Q6H PRN Proair Hfa (Albuterol Sulfate) 8.5 Gm Hfa.aer.ad 2 Puff IH QID PRN Benicar Hct 40-25 mg Tablet (Olmesartan/Hydrochlorothiazide) 1 Each Tablet 1 Tab PO DAILY Amlodipine Besylate 10 Mg Tablet 10 Mg PO DAILY Metformin HCl 500 Mg Tablet 500 Mg PO BID Instructions to patient/family Please see electonic discharge instructions given to patient. Clinical Quality Measures DVT/VTE Risk/Contraindication: Risk Factor Score Per Nursin RFS Level Per Nursing on Admit: 4+=Very High Copy Copies To 1: EDDIE KELLEY MINDI DO Feb 28, 2016 09:33
[2016-02-28 10:57] VITALS: BP 161/86
[2016-02-29 22:00] LABS: TB GOLD MITOGEN-NIL VALUE 0.36 IU/mL (0.50-10.00); TB GOLD QUANTIFERON INTERP Indeterminate (Negative)
[2016-03-01 07:40] LABS: TB GOLD NIL VALUE 0.02 IU/mL (0.00-7.99); TB GOLD TB ANTIGEN-NIL VALUE <0.00 IU/mL (0.00-0.34)
[2016-03-01 22:42] LABS: ASPERGILLIUS ABY TOTAL SER IGE 311 IU/mL (3-48); ASPERGILLIUS IGE RAST COUNT <0.10 kU/L (<0.35)
[2016-03-02 08:44] LABS: ASPERGILLIUS F IGG ABY >200.0 mcg/mL (<46.0); ASPERGILLIUS IGE RAST CLASS 0
== END 2016-02-28 11:10 | disposition home or self-care (01) | DRG 195 ==
LOC: UNDOADMIN 10:59 → 4TH 10:59
PROVIDERS: ADMIT Internal Medicine; ATTEND Internal Medicine
DX: J18.9 Pneumonia, unspecified organism (principal); R91.8 Other nonspecific abnormal finding of lung field; R09.02 Hypoxemia; I10 Essential (primary) hypertension; E11.65 Type 2 diabetes mellitus with hyperglycemia; T49.0X5A Adverse effect of local antifungal, anti-infective and anti-inflammatory drugs, initial encounter; K21.9 Gastro-esophageal reflux disease without esophagitis; Z87.891 Personal history of nicotine dependence
CPT/HCPCS: 36415; 71020; 80053; 80202; 81000; 82785; 82962; 83735; 84100; 85007; 85025; 85027; 85652; 86003; 86480; 86606; 87040; 87070; 87205; 87804; 94640; 94664; 94760; 94761

== ENCOUNTER → 2016-04-03 | Outpatient (CLI) | payer BC ==
[~2016-04-03] MED LIST changes: +ALBU2.5V4 NEB; +AMOX1TAB12 PO; +ASPI-983 PO; +CETI10TA20 PO; +FOLI0.4T2 PO; +GINK500C PO; +MULT-35 PO; +PRED10TA22 PO; +[UNRECOGNIZED DRUG - CODE] PO
--- OUTSIDE RECORDS SUMMARY | 2016-04-03 10:12 | XMS REPORT | Continuity of Care Document ---
Author Author [facility] Organization [facility] Address Unknown Phone Unavailable Care Team Providers Care Pin Drafting Machine Tender Name Role Phone EDDIE KELLEY DO PCP Insurance Providers Payer Name Policy Number Subscriber Name Relationship [facility] [id number] Estelle Putnam 01 Advance Directives Directive Response Recorded Date/Time Advance Directives No 01/24/16 8:53am Health Care Power of General Ophthalmologist No 01/24/16 8:53am Resuscitation Status Full Code [...] 8.00 inches 01/24/2016 8:46am Height (Calculated Centimeters) 172.599825 cm 01/24/2016 8:46am Weight (Pounds) 207 pounds 01/24/2016 8:46am Weight (Ounces) 0.0 oz 01/24/2016 8:46am Weight (Calculated Grams) 62342.62 gm 01/24/2016 8:46am Weight (Calculated Kilograms) 93.146716 kilograms 01/24/2016 8:46am Calculated BMI 31.5 01/24/2016 8:46am Results No known relevant diagnostic tests, laboratory data and/or discharge summary. Procedures No known history of procedures. Encounters Encounter Location Arrival/Admit Date Discharge/Depart Date Attending Provider Departed Clinic [facility] 01/24/16 8:43am 01/24/16 9: 08am KRISTAL RUIZ DO
--- NOTE | 2016-04-03 13:25 | Diagnostic Imaging Report ---
PROCEDURE: CT chest without contrast. TECHNIQUE: Multiple contiguous axial images were obtained through the chest without the use of intravenous contrast. INDICATION: Pneumonia. Lung mass. Cough. COMPARISON: 02/04/16. FINDINGS: When compared to 02/04/2016, there is significant improvement with large mass-like consolidation near completely resolved. Remaining area of consolidation is seen in the anterior suprahilar region with air bronchogram. This may relate to remaining atelectasis and/or scarring. The left lung demonstrates no significant consolidation or mass. There is a precarinal 1.3 cm lymph node smaller compared to the previous study and minimally prominent infracarinal lymph node. No adverse development from the previous study. No lymphadenopathy of significance in the axillary regions. The heart size is normal. No pericardial or pleural effusion. There is diffuse fatty infiltration of the liver. The osseous structures demonstrate mild degenerative changes. IMPRESSION: Significant improvement compared to 02/04/2016 with remaining focal area of consolidation with air bronchograms may relate to residual atelectasis or scarring. Another followup in 4 months with a low-dose CT chest without contrast is recommended to ensure stability or resolution. Dictated by: Dictated on workstation # [id number]
== END ==
LOC: RAD 10:09
PROVIDERS: ATTEND Internal Medicine Critical Care Medicine
DX: J18.9 Pneumonia, unspecified organism (principal); R91.8 Other nonspecific abnormal finding of lung field; R05 Cough
CPT/HCPCS: 71250

== ENCOUNTER → 2016-08-09 | Outpatient (CLI) | payer BC ==
--- NOTE | 2016-08-09 11:17 | Diagnostic Imaging Report ---
PROCEDURE: CT chest without contrast. TECHNIQUE: Multiple contiguous axial images were obtained through the chest without the use of intravenous contrast. INDICATION: Followup consolidation. COMPARISON: 04/03/2016 and 02/04/2016. FINDINGS: There is a curvilinear area of remaining consolidation in the left upper lobe, decreased in size compared to 04/03/2016 suggestive of remaining atelectasis and/or scarring. Study from January 2016 demonstrated a large mass-like consolidation in this region. The near-complete resolution is compatible with pneumonia. There are no suspicious nodules or masses seen otherwise in the lungs. The mediastinum demonstrates right paratracheal lymph node measuring 1.3 cm and 0.9 CM infracarinal lymph node. The heart size is normal. No pericardial or pleural effusion. The thoracic aorta is normal in caliber. No axillary lymphadenopathy is seen. Sections of the upper abdomen demonstrate diffuse hepatic steatosis. There is an 8 mm calcified gallstone also seen. The osseous structures demonstrate mild degenerative changes. IMPRESSION: 1. Improving residual curvilinear consolidation in the left upper lobe is compatible with scarring or atelectasis after pneumonia. 2. Unchanged minimally enlarged nonspecific right paratracheal lymph nodes. 3. Cholelithiasis. 4. Hepatic steatosis. Dictated by: Dictated on workstation # [id number]
== END ==
LOC: RAD 09:36
PROVIDERS: ATTEND Nurse Practitioner Family
DX: K80.20 Calculus of gallbladder without cholecystitis without obstruction (principal); K76.0 Fatty (change of) liver, not elsewhere classified; R59.0 Localized enlarged lymph nodes; R05 Cough
CPT/HCPCS: 71250

== ENCOUNTER → 2017-01-23 | Outpatient (CLI) | payer BC ==
--- NOTE | 2017-01-23 10:48 | Diagnostic Imaging Report ---
INDICATION: COPD with asthma. Comparison made with prior examination from 02/27/2016. FINDINGS: The heart size is normal. There is some patchy bibasilar subsegmental atelectasis and/or pneumonitis. There is no pleural effusion or pneumothorax. The mediastinum is unremarkable. IMPRESSION: Patchy bibasilar subsegmental atelectasis and/or pneumonitis. Dictated by: Dictated on workstation # [id number]
== END ==
LOC: RAD 09:46
PROVIDERS: ATTEND Nurse Practitioner Family
DX: J44.9 Chronic obstructive pulmonary disease, unspecified (principal); J18.9 Pneumonia, unspecified organism; J30.9 Allergic rhinitis, unspecified
CPT/HCPCS: 71020

== ENCOUNTER 2020-11-08 05:29 | Outpatient (RCR) | payer MEDICARE ==
[~2020-11-08] VITALS: Ht 172.7 cm; Wt 92.4 kg
[~2020-11-08 05:29] MED LIST changes: +AMLO-251 PO; -AMLO10TA2 PO; +ASPI-1238 PO; -ASPI-983 PO; -CETI10TA20 PO; +CETI10TA49 PO; +FERR325T24 PO; -FOLI0.4T2 PO; +FOLI0.4T6 PO; +HYDR25TA4 PO; +METF-397 PO; -METF500T4 PO; +PANT40TA52 PO
== END 2020-11-08 08:42 | disposition home or self-care (01) ==
LOC: PREOP 05:29
PROVIDERS: ATTEND Surgery
DX: Z01.812 Encounter for preprocedural laboratory examination (principal); Z12.11 Encounter for screening for malignant neoplasm of colon; R13.10 Dysphagia, unspecified; Z20.822 Contact with and (suspected) exposure to COVID-19
CPT/HCPCS: 87635

== ENCOUNTER 2020-11-10 08:55 | Day surgery (SDC) | payer BC, MEDICARE ==
[~2020-11-10] VITALS: Ht 172.7 cm; Wt 92.4 kg
[2020-11-10] VITALS (7 sets, daily range): BP systolic 100–157; BP diastolic 55–93
[2020-11-10] MEDS ORDERED: LIDOCAINE JELLY 2% 6 ML SYRINGE MM PRN (09:00)
[2020-11-10] MEDS ORDERED: HURRICAINE EXT TUBE (BENZOCAINE) XX PRN (09:00)
[2020-11-10] MEDS ORDERED: fentaNYL INJ 100 MCG/2 ML AMP IVP ONE (09:00)
[2020-11-10] MEDS ORDERED: MIDAZOLAM 5 MG/5 ML (VERSED) VIAL IV ONE (09:00)
[2020-11-10] MEDS ORDERED: LACTATED RINGERS 1,000 ML IV ONE ×2 (09:08→11:15)
[2020-11-10] MEDS: NS IV 500 ML 500 ML IV PRN ×2 (09:15→11:01)
[2020-11-10] MEDS ORDERED: PROPOFOL INJECTION 50 ML IV ONE ×2 (10:11→10:49)
--- NOTE | 2020-11-10 10:11 | Progress Note-Pre Operative ---
Pre-Operative Progress Note H&P Reviewed The H&P was reviewed, patient examined and no changes noted. Date Seen by Provider: Nov 10, 2020 Time Seen by Provider: : Date H&P Reviewed: Nov 10, 2020 Time H&P Reviewed: : Pre-Operative Diagnosis: dysphagia, screening o NEHA LAZAR MD Nov 10, 2020 10:11
--- NOTE | 2020-11-10 10:14 | Discharge Inst-Surgical ---
D/C Lap Instructions-NAGI Follow Up Appt in 2 weeks Activity as tolerated High Fiber Diet 25g or more per day Avoid Alcohol, Caffeine, Spicy [place] and Acid foods. Drink 64 fluid oz or more of fluids per day. Symptoms to Report: Fever over 101 degree F, Nausea/Vomiting If any problems/questions: Contact your physician or go to Emergency Room NEHA LAZAR MD Nov 10, 2020 10:14
[2020-11-10] MEDS ORDERED: ONDANSETRON 4 MG/2 ML (SDV) Z0FRAN IVP PRN (10:15)
[2020-11-10] MEDS ORDERED: ONDANSETRON 4 MG (ZOFRAN) ORAL DISSOLVE TAB PO PRN (10:15)
--- NOTE | 2020-11-10 12:04 | Anesthesia-General Post-Op ---
MAC Patient Condition Mental Status/LOC: Same as Preop Cardiovascular: Satisfactory Nausea/Vomiting: Absent Respiratory: Satisfactory Pain: Controlled Complications: Absent Post Op Complications Complications None Follow Up Care/Instructions Patient Instructions None needed. Anesthesiology Discharge Order Discharge Order Patient is doing well, no complaints, stable vital signs, no apparent adverse anesthesia problems. No complications reported per nursing. MORE OBRIEN CRNA Nov 10, 2020 12:04
--- NOTE | 2020-11-10 12:09 | Progress Note-Post Operative ---
Post-Operative Progess Note Surgeon (s)/Language Interpreter (s) Surgeon NEHA LAZAR MD Language Interpreter: none Pre-Operative Diagnosis dysphagia, screening colo Post-Operative Diagnosis reflux esophagitis(stage 2), distal esoph stricture, small HH(2.5cm), type 1 healing gastric ulcer, s small pyoric polyps. chronic stage 2 ext and int hemorrhoids, small rectal A-V malformations, mild sigmoid diverticulosis. Procedure & Operative Findings Date of Procedure 11/10/20 Procedure Performed/Findings EGD with bx and balloon dilatation. colonoscopy Anesthesia Type mac Estimated Blood Loss Estimated blood loss (mL): minimal Specimens/Packing Specimens Removed ge jxn, gastric ulcer, antrum, pyloric polyp NEHA LAZAR MD Nov 10, 2020 12:09
--- NOTE | 2020-11-10 17:49 | OPERATIVE REPORT ---
DATE OF SERVICE: 11/10/2020 ATTENDING PRIMARY CARE PHYSICIAN: Juve Lundberg DO PREOPERATIVE DIAGNOSES: Dysphagia, distal esophageal stricture, gastric ulcer, screening colonoscopy. POSTOPERATIVE DIAGNOSES: Reflux esophagitis stage II, distal esophageal stricture, small hiatal hernia approximately 2.5 cm in size, type 1 gastric ulcer, which is healing. Two small polyps in the pylorus. No distal obstructions. Chronic stage II external and internal hemorrhoids, mild rectal AV malformations, mild sigmoid diverticulosis. PROCEDURE: EGD with biopsy and balloon dilatation. Colonoscopy. SURGEON: Neha Arnold MD ANESTHESIA: Monitored anesthesia care. ESTIMATED BLOOD LOSS: Minimal. FINDINGS: Same as postoperative diagnosis. DISPOSITION: The patient tolerated the procedure well. INDICATIONS: The patient is a 69-year-old male who has had issues with dysphagia for the past several years; however, he was on vacation and ate food bolus, which was steak and felt substernal pressure sensation, which was not relieved and he presented to the local Emergency Department where he had an esophageal food bolus removed; however, he did not want any further intervention with dilatation and wanted to have that done here. He also reported finding of a gastric ulcer. He was started on Protonix at that time. He reports that he has had issues with gastroesophageal reflux disease for a number of years as well. He is also in need of a screening colonoscopy. His last colonoscopy was greater than 10 years ago. DESCRIPTION OF PROCEDURE: The patient was brought to the endoscopy suite, laid in left lateral decubitus position. After adequate IV pain and sedative medications and monitored anesthesia care, the mouthpiece was applied. The endoscope was placed in the mouth, visualizing the pharynx and hypopharyngeal region. Vocal cords, epiglottis and vallecula identified and appeared to be normal. Endoscope was then gently abated esophageal opening and esophagus insufflated. The endoscope was then advanced to the first, second and third portion of esophagus at the level of the GE junction, a reflux esophagitis stage II identified. There was a distal esophageal stricture and Schatzki's ring identified. Biopsies were taken of the GE junction with forceps with visualization of good hemostasis. The endoscope was then advanced into the stomach and endoscope retroflexed, visualizing the stricture; however, there was also a small hiatal hernia approximately 2.5 cm in size. There was a small healing gastric ulcer on the lesser curvature next to the incisura angularis consistent with a type 1 ulceration. Biopsy was taken of the ulcer with visualization of good hemostasis. There was a moderate gastritis and a biopsy was taken of the antrum to rule out H. pylori. The endoscope was then advanced to the pylorus where two small polyps identified and biopsied. The endoscope was then advanced to the first and second portion of the duodenum, which appeared normal with no distal obstructions. We then proceeded with balloon dilatation and the balloon was placed in the stomach and pulled back to the area of the stricture. We then proceeded in a stepwise gradual fashion from 24, then eventually to a 5 atmospheres of pressure, which equated to approximately 19.5 mm in diameter with moderate resistance and left this in place for approximately 60 seconds. The balloon was then desufflated and removed with visualization of good hemostasis as well as no mucosal tears. The endoscope was then slowly withdrawn while taking a second look and suctioning of residual air with no additional findings. A digital rectal examination was performed, which revealed chronic stage II external and internal hemorrhoids. Normal sphincter tone was felt and there were no palpable masses. Prostate gland was palpable and appeared normal. The endoscope was then intubated into anus and rectum gently insufflated. The endoscope was then advanced through the valves of Vee of the rectum and in the rectum, small AV malformations were identified, which were not bleeding. The endoscope was then advanced through the sigmoid colon where mild sigmoid diverticulosis identified. The endoscope was then advanced and remainder of the descending, transverse and ascending colon to the cecum, which were normal. There were no polyps or any neoplasms identified. The endoscope was then slowly withdrawn while taking a second look and suctioning of residual air with no additional findings. The patient tolerated the procedure well. We will recommend the necessary lifestyle and diet accommodation including small and more frequent meals, avoidance of eating at night as well as head elevation while lying supine. He also needs to avoid caffeinated beverages, spicy, greasy and acidic foods as well as alcoholic beverages. We will warned him to continue his Protonix 40 mg daily. We will also recommend a high fiber diet with incorporation of a fiber supplement, which should equal or exceed 30 grams daily to promote soft stools on a daily basis and if he is asymptomatic, he does not need another colonoscopy for another 10 years. Job ID: [id number] DocumentID: [id number] Dictated Date: 11/10/2020 11:14:56 Automatic Toe Laster Date: 11/10/2020 17:48:46 Dictated By: NEHA ARNOLD MD
== END 2020-11-10 11:45 | disposition home or self-care (01) ==
LOC: ENDO 08:55
PROVIDERS: ATTEND Surgery
DX: Z12.11 Encounter for screening for malignant neoplasm of colon (principal); K29.50 Unspecified chronic gastritis without bleeding; K22.2 Esophageal obstruction; K25.9 Gastric ulcer, unspecified as acute or chronic, without hemorrhage or perforation; K55.20 Angiodysplasia of colon without hemorrhage; K21.00 Gastro-esophageal reflux disease with esophagitis, without bleeding; K44.9 Diaphragmatic hernia without obstruction or gangrene; K31.7 Polyp of stomach and duodenum; K64.1 Second degree hemorrhoids; K64.4 Residual hemorrhoidal skin tags; K57.30 Diverticulosis of large intestine without perforation or abscess without bleeding; D64.9 Anemia, unspecified; E11.9 Type 2 diabetes mellitus without complications; I10 Essential (primary) hypertension; Z79.82 Long term (current) use of aspirin; Z79.84 Long term (current) use of oral hypoglycemic drugs; Z79.899 Other long term (current) drug therapy
CPT/HCPCS: 43239; 43249; G0121; 82947; 88305

== ENCOUNTER 2022-02-13 05:31 | Outpatient (CLI) | payer MEDICARE ==
[~2022-02-13] VITALS: Ht 172.7 cm; Wt 94.6 kg
[~2022-02-13 05:31] MED LIST changes: +ALBU8.5H6 IH; +OLME-40 PO; -OLME1TAB24 PO; -RT-ALBUINH IH
[2022-02-13] MEDS ORDERED: SUCR1TAB PO (14:40)
== END 2022-02-13 15:26 | disposition home or self-care (01) ==
LOC: PREOP 05:31
PROVIDERS: ATTEND Surgery
DX: Z01.818 Encounter for other preprocedural examination (principal)

== ENCOUNTER 2022-02-15 13:16 | Day surgery (SDC) | payer MEDICARE ==
[~2022-02-15] VITALS: Ht 172 cm; Wt 94.6 kg
[~2022-02-15 13:16] MED LIST changes: +SUCR1TAB PO
[2022-02-15] MEDS ORDERED: LACTATED RINGERS 1,000 ML IV STA (13:20)
[2022-02-15] MEDS ORDERED: LIDOCAINE JELLY 2% 6 ML SYRINGE MM PRN (13:30)
[2022-02-15] MEDS ORDERED: HURRICAINE EXT TUBE (BENZOCAINE) XX ONE (13:30)
[2022-02-15 13:40] VITALS: BP 154/81
--- NOTE | 2022-02-15 13:43 | Progress Note-Pre Operative ---
Pre-Operative Progress Note Date of Available H&P: Feb 15, 2022 Date H&P Reviewed: Feb 15, 2022 Time H&P Reviewed: 13:00 History & Physical: No changes noted Pre-Operative Diagnosis: PUD with hx type 1 gastric ulcer NEHA LAZAR MD Feb 15, 2022 13:43
--- NOTE | 2022-02-15 13:44 | Discharge Inst-Surgical ---
D/C Lap Instructions-NAGI Follow Up Activity as tolerated High Fiber Diet 25g or more per day Avoid Alcohol, Caffeine, Spicy [place] and Acid foods. Drink 64 fluid oz or more of fluids per day. Symptoms to Report: Fever over 101 degree F, Nausea/Vomiting If any problems/questions: Contact your physician or go to Emergency Room NEHA LAZAR MD Feb 15, 2022 13:44
[2022-02-15] MEDS ORDERED: ONDANSETRON 4 MG (ZOFRAN) ORAL DISSOLVE TAB PO PRN (13:45)
[2022-02-15] MEDS ORDERED: ONDANSETRON 4 MG/2 ML (SDV) Z0FRAN IVP PRN (13:45)
[2022-02-15] MEDS ORDERED: proPOfol 200 MG/20 ML (DIPRIVAN) VIAL IV ONE (14:35)
[2022-02-15] MEDS ORDERED: LIDOCAINE JELLY 2% 6 ML SYRINGE ONE (14:52)
[2022-02-15 15:10] VITALS: BP 123/74
[2022-02-15 15:15] VITALS: BP 130/74
--- NOTE | 2022-02-15 15:17 | Anesthesia-General Post-Op ---
MAC Patient Condition Mental Status/LOC: Same as Preop Cardiovascular: Satisfactory Nausea/Vomiting: Absent Respiratory: Satisfactory Pain: Controlled Complications: Absent Post Op Complications Complications None Follow Up Care/Instructions Patient Instructions None needed. Anesthesiology Discharge Order Discharge Order Patient is doing well, no complaints, stable vital signs, no apparent adverse anesthesia problems. No complications reported per nursing. KAREL LIVE DO Feb 15, 2022 15:17
[2022-02-15 15:20] VITALS: BP 138/93
--- NOTE | 2022-02-15 15:28 | Progress Note-Post Operative ---
Post-Operative Progess Note Surgeon (s)/Cone Treater (s) Surgeon NEHA LAZAR MD Cone Treater: none Pre-Operative Diagnosis PUD with hx type 1 gastric ulcer Post-Operative Diagnosis reflux esophagitis(grade B), moderate HH(3cm), mild-moderate gastritis, no ulcers or any active bleeding Procedure & Operative Findings Date of Procedure 02/15/22 Procedure Performed/Findings EGD with bx. Anesthesia Type mac Estimated Blood Loss Estimated blood loss (mL): minimal Specimens/Packing Specimens Removed ge jxn, antrum NEHA LAZAR MD Feb 15, 2022 15:28
[2022-02-15 15:31] VITALS: BP 138/93
--- NOTE | 2022-02-16 01:49 | OPERATIVE REPORT ---
DATE OF SERVICE: 02/15/2022 ATTENDING PRIMARY CARE PHYSICIAN: Dr. Juve Lundberg. PREOPERATIVE DIAGNOSES: History of peptic ulcer disease and a type 1 gastric ulcer as well as a hiatal hernia. POSTOPERATIVE DIAGNOSES: Reflux esophagitis [place] grade B, moderate size hiatal hernia, 3 cm in size, mild to moderate gastritis, no formal ulcerations or any bleeding sources. PROCEDURE: EGD with biopsy. SURGEON: Neha Lazar MD ANESTHESIA: Monitored anesthesia care. ESTIMATED BLOOD LOSS: Minimal. FINDINGS: Reflux esophagitis [place] grade B, moderate size hiatal hernia, 3 cm in size, mild to moderate gastritis, no formal ulcerations or any bleeding sources. DISPOSITION: The patient tolerated the procedure well. INDICATIONS: The patient is a 71-year-old male known to us. He had an issue with dysphagia in the past as well as the history of peptic ulcer disease. On 11/11/2019, he underwent an EGD and was found to have a mild distal esophageal stricture and underwent a balloon dilatation. He was also found to have a hiatal hernia approximately 2.5 cm in size as well as a type 1 gastric ulcer. The colonoscopy did show mild chronic stage II external and internal hemorrhoids as well as mild rectal AV malformation and sigmoid diverticulosis. He does not report any hematemesis, no coffee-ground emesis as well as no red blood per rectum, nor any dark tarry stools. He was found to have low iron levels as well as mildly low hemoglobin at 9.9. His only risk factors for peptic ulcer disease include 2 cups of coffee as well as an occasional alcoholic beverage. DESCRIPTION OF PROCEDURE: The patient was brought to the endoscopy suite and laid in the left lateral decubitus position. After adequate IV pain and sedative medications and monitored anesthesia care, the mouthpiece was applied. The endoscope was placed in the mouth to visualize the pharynx hypopharyngeal region. Vocal cords, epiglottis and vallecula were identified and appeared to be normal. Endoscope was then gently intubated into the esophageal opening. The esophagus was insufflated. The endoscope was then advanced into the first, second and third portion of the esophagus. At the level of the GE junction, reflux esophagitis [place] grade B identified. No ulcers or strictures identified and a biopsy was taken with forceps with visualization with good hemostasis. The endoscope was then advanced into the stomach. The endoscope was retroflexed, visualizing a hiatal hernia, which did seem to be slightly larger than the previous one at 3 cm. There were no ulcerations in this region. There was a [id number] gastritis, no formal polyps or gastric ulcers. A biopsy was taken of the antrum to rule out H. pylori with visualization of good hemostasis. The endoscope was then advanced through the pylorus and the first and second portion of the duodenum, which appeared normal with no ulcerations, distal obstructions or any bleeding sources. The endoscope was then slowly withdrawn, taking a second look and suctioning all residual air with no additional findings. The patient tolerated the procedure well. We will recommend the necessary lifestyle and dietary combination including small and more frequent meals, avoiding eating at night as well as head elevation while lying supine. He also needs avoid caffeinated beverages, spicy, greasy, and acidic foods and continue to take his PPI acid test technician. We are unsure of his iron deficiency; however, from our standpoint, this can be continued to be monitored; however, he does not show any clinical signs of bleeding and if this worsens or he does show signs of clinical bleeding, we will then proceed with repeat endoscopy. Also, his hiatal hernia seems to be enlarging slightly and if his reflux type of symptoms do worsen, despite maximal medical therapy, we would then offer potential hiatal hernia repair as well as an antireflux procedure. However, before proceeding with this, we would rule out an esophageal dysmotility disorder and proceed with esophageal manometry study beforehand. Job ID: [id number] DocumentID: [id number] Dictated Date: 02/15/2022 15:22:44 Food And Nutrition Teacher Date: 02/16/2022 01:47:00 Dictated By: NEHA LAZAR MD
== END 2022-02-15 15:55 | disposition home or self-care (01) ==
LOC: ENDO 13:16
PROVIDERS: ATTEND Surgery
DX: K21.00 Gastro-esophageal reflux disease with esophagitis, without bleeding (principal); K44.9 Diaphragmatic hernia without obstruction or gangrene; K29.50 Unspecified chronic gastritis without bleeding; D50.9 Iron deficiency anemia, unspecified; E11.9 Type 2 diabetes mellitus without complications; Z87.11 Personal history of peptic ulcer disease; Z87.19 Personal history of other diseases of the digestive system; Z79.84 Long term (current) use of oral hypoglycemic drugs; Z79.899 Other long term (current) drug therapy; Z87.891 Personal history of nicotine dependence
CPT/HCPCS: 82947

== ENCOUNTER → 2022-02-23 | Outpatient (CLI) | payer MEDICARE ==
--- NOTE | 2022-02-23 12:57 | Diagnostic Imaging Report ---
PROCEDURE: US Gallbladder. TECHNIQUE: Multiple real-time grayscale images were obtained over the right upper quadrant in various projections. INDICATION: Right upper quadrant pain. Liver is slightly enlarged 18.3 cm. Portal vein is patent and shows normal direction of flow. No liver mass is identified. Gallbladder does contain multiple stones. Gallbladder wall does not appear to be appreciably thickened. No significant biliary ductal dilatation is seen. Pancreas was obscured. The proximal aorta and IVC are unremarkable. The mid and distal portions are obscured. Right kidney is without calculi or hydronephrosis. There is no ascites. IMPRESSION: 1. Mild hepatomegaly. 2. Cholelithiasis without evidence of acute cholecystitis. Dictated by: Dictated on workstation # [id number]
--- NOTE | 2022-02-24 15:14 | HISTORY AND PHYSICAL ---
DATE OF SERVICE: 02/23/2022 ATTENDING PRIMARY CARE PHYSICIAN: Dr. Juve Lundberg. INDICATION: The patient 71-year-old male, who is known to us. He has had issues with dysphagia in the past as well as a history of peptic ulcer disease. On 11/11/2019, he underwent an EGD and was found to have a mild distal esophageal stricture and underwent a balloon dilatation. He was also found to have a hiatal hernia. There is 2.5 cm in size as well as a type 1 gastric ulcer. The colonoscopy showed a mild chronic stage II, external and internal hemorrhoids as well as mild rectal AV malformation and sigmoid diverticulosis. He is seen again recently for complaints of epigastric pain and pressure sensation, which he did report radiated to his left chest and arms and it usually occurred after eating. He is currently on a Protonix daily; however, continues to have symptoms. He denies any hematemesis or any coffee-ground emesis as well as no red blood per rectum or any dark tarry stools. He did have recent lab work performed and was found to have low iron levels as well as a mildly low hemoglobin at 9.9. His risk factors for peptic ulcer disease include 2 cups of coffee as well as occasional alcoholic beverage. On 02/15/2022, he underwent EGD with biopsy. Findings were reflux esophagitis grade B. Moderate size hiatal hernia, 3 cm in size. Mild to moderate gastritis with no formal ulcerations or any bleeding. Biopsies were negative for H. pylori as well as negative for Enciso's esophagus. On today's visit, he continues to have the epigastric pain, especially after eating. He denies any nausea or vomiting as well as no diarrhea or constipation. It was decided that due to his continued abdominal pain to proceed with a gallbladder ultrasound in which he was completed yesterday on 02/23/2022 and was found to have multiple gallstones. MEDICAL HISTORY: Type 2 diabetes mellitus, hypertension, iron deficiency anemia, gastroesophageal reflux disease, peptic ulcer disease. SURGICAL HISTORY: Abdominal hernia repair. ALLERGIES: No known drug allergies. MEDICATIONS: Aspirin 81 mg daily, hydrochlorothiazide 25 mg daily, Protonix 40 mg daily, amlodipine 10 mg daily, metformin 500 mg, olmesartan medoxomil 40 mg. SOCIAL HISTORY: Previous for tobacco smoker, 1 pack per day for 20 years, quit in 1992. Social for alcohol. FAMILY HISTORY: Brother, hypertension, diabetes. Father, hypertension, myocardial infarction. Mother, hypertension, myocardial infarction. REVIEW OF SYSTEMS: Well-nourished male in no acute distress. He is not experiencing any shortness of breath or difficulty breathing. No chest pain, palpitations or diaphoresis. No nausea or vomiting, but does report episodes of epigastric abdominal pain, especially after eating. No diarrhea or constipation. No red blood per rectum. No dark tarry stools. No fever or chills. No recent and no overt weight loss. All other review of systems negative. PHYSICAL EXAMINATION: CHEST: Clear, good breath sounds bilaterally. HEART: Regular, no murmurs. EXTREMITIES: No lower extremity edema. Negative Homans sign. HEENT: No scleral icterus. No cervical lymphadenopathy. ABDOMEN: Soft, nondistended. There is tenderness in the epigastric region with moderate to deep palpation. SKIN: Warm, dry and pink. NEUROLOGIC: Awake, alert and oriented x3. ASSESSMENT AND PLAN: A 71-year-old male with a symptomatic chronic calculous cholecystitis. The risks and benefits of the procedure as well as the procedure and home care instructions were explained to the patient. He verbalized understanding of instructions and agrees to proceed as planned. At this time, we will proceed with scheduling the patient for a laparoscopic cholecystectomy. Job ID: [id number] DocumentID: [id number] Dictated Date: 02/24/2022 09:28:39 Animal Cruelty Investigation Supervisor Date: 02/24/2022 15:12:00 Dictated By: ASAD MONDRAGON APRN
== END ==
LOC: RAD 09:09
PROVIDERS: ATTEND Surgery
DX: K76.0 Fatty (change of) liver, not elsewhere classified (principal); K80.20 Calculus of gallbladder without cholecystitis without obstruction
CPT/HCPCS: 76705

== ENCOUNTER 2022-02-27 05:33 | Outpatient (CLI) | payer MEDICARE ==
[~2022-02-27] VITALS: Ht 172.7 cm; Wt 94.6 kg
[2022-02-28] MEDS ORDERED: HYDR-3817 PO (12:00)
== END 2022-02-27 09:10 | disposition home or self-care (01) ==
LOC: PREOP 05:33
PROVIDERS: ATTEND Surgery
DX: Z01.818 Encounter for other preprocedural examination (principal)

== ENCOUNTER 2022-02-28 11:54 | Day surgery (SDC) | payer MEDICARE ==
[2022-02-28] VITALS (12 sets, daily range): BP systolic 91–143; BP diastolic 48–78
[2022-02-28] MEDS ORDERED: ACETAMINOPHEN 325 MG TABLET PO PRN (12:00)
[2022-02-28] MEDS ORDERED: HYDR-3817 PO (12:00)
[2022-02-28] MEDS ORDERED: ONDANSETRON 4 MG/2 ML (SDV) Z0FRAN IVP PRN ×2 (12:00→14:15)
[2022-02-28] MEDS ORDERED: HYDROcodone/APAP 5 MG/325 MG (LORTAB) TAB PO ONE (12:00)
[2022-02-28] MEDS ORDERED: morphine INJ 10 MG/ML 1ML (SYR OR VIAL) IVP PRN (12:00)
--- NOTE | 2022-02-28 12:00 | Discharge Inst-Surgical ---
D/C Lap Instructions-KIDO Reconcile Patient Problems Problems Reviewed?: Yes New, Converted, or Re-Newed RX: RX on Chart Follow Up Appt in 2 weeks Activity as tolerated No driving for 24 hours No driving while on pain medications Incentive Spirometry use every 2 hours while awake Regular Diet Symptoms to Report: Fever over 101 degree F, Nausea/Vomiting Infection Signs and Symptoms to report: Increased redness, Foul odor of wound, Increased drainage Bathing instructions: May shower Operative Area Clean/Dry; Keep incision clean/dry If any problems/questions: Contact your physician or go to Emergency Room ASAD MONDRAGON APRN Feb 28, 2022 12:00
--- NOTE | 2022-02-28 12:06 | Progress Note-Pre Operative ---
Pre-Operative Progress Note Date H&P Reviewed: Feb 28, 2022 Time H&P Reviewed: 12:05 History & Physical: H&P Reviewed, Patient Examed, No changes noted Pre-Operative Diagnosis: Chronic calculous cholecystitis ASAD MONDRAGON APRN Feb 28, 2022 12:06
[2022-02-28] MEDS ORDERED: ceFAZolin INJECTION 2,000 MG in NS (IVPB) 50 ML IV ONE (12:15)
[2022-02-28] MEDS ORDERED: BUP/EPI 0.5% 1:200,000 (SENSORCAINE) 30 ML VIAL ONE (12:33)
[2022-02-28] MEDS ORDERED: LIDOCAINE PF 2% 5 ML (XYLOCAINE) VIAL ONE (12:38)
[2022-02-28] MEDS ORDERED: NEOSTIGMINE 3 MG/3 ML VIAL ONE (12:38)
[2022-02-28] MEDS ORDERED: proPOfol 200 MG/20 ML (DIPRIVAN) VIAL IV ONE (12:38)
[2022-02-28] MEDS ORDERED: fentaNYL INJ 100 MCG/2 ML AMP ONE (12:38)
[2022-02-28] MEDS ORDERED: ONDANSETRON 4 MG/2 ML (SDV) Z0FRAN ONE (12:38)
[2022-02-28] MEDS ORDERED: GLYCOPYRROLATE 0.2 MG/ML (ROBINUL) 2 ML VIAL ONE (12:38)
[2022-02-28] MEDS ORDERED: ROCURONIUM 50 MG/5 ML (ZEMURON) VIAL IV ONE (12:39)
[2022-02-28] MEDS: LACTATED RINGERS 1,000 ML IV PRN ×2 (12:39→14:23)
[2022-02-28] MEDS ORDERED: PHENYLEPHRINE 100 MCG/ML 10 ML (ANESTHESIA) SYR ONE (13:06)
--- NOTE | 2022-02-28 13:43 | Progress Note-Post Operative ---
Post-Operative Progess Note Surgeon (s)/Computer Training Specialist (s) Surgeon NEHA LAZAR MD Computer Training Specialist: doris alvarado TECHNICAL MAINTENANCE SPECIALIST Pre-Operative Diagnosis Chronic calculous cholecystitis Post-Operative Diagnosis same Procedure & Operative Findings Date of Procedure 02/28/22 Procedure Performed/Findings laparoscopic cholecystectomy Anesthesia Type get Estimated Blood Loss Estimated blood loss (mL): minimal Specimens/Packing Specimens Removed gallbladder NEHA LAZAR MD Feb 28, 2022 13:43
[2022-02-28] MEDS ORDERED: SEVOFLURANE (ULTANE) 15 ML INHAL SOLN ONE (14:05)
--- NOTE | 2022-02-28 14:13 | Anesthesia-General Post-Op ---
General Patient Condition Mental Status/LOC: Same as Preop Cardiovascular: Satisfactory Nausea/Vomiting: Absent Respiratory: Satisfactory Pain: Controlled Complications: Absent Post Op Complications Complications None Follow Up Care/Instructions Patient Instructions None needed. Anesthesia/Patient Condition Patient Condition Patient is in PACU doing well with no complaints, stable vital signs, no apparent adverse anesthesia problems. No complications reported per nursing. KAREL LIVE DO Feb 28, 2022 14:13
[2022-02-28] MEDS ORDERED: HYDROmorphone 2 MG/ML VIAL (DILAUDID) IV ONE (14:15)
[2022-02-28] MEDS: morphine INJ 10 MG/ML 1ML (SYR OR VIAL) IVP ONE (14:31)
[2022-02-28] MEDS ORDERED: HYDROcodone/APAP 5 MG/325 MG (LORTAB) TAB ONE (15:16)
--- NOTE | 2022-02-28 23:35 | OPERATIVE REPORT ---
DATE OF SERVICE: 02/28/2022 ATTENDING PRIMARY CARE PHYSICIAN: Juve Lundberg DO PREOPERATIVE DIAGNOSIS: Symptomatic chronic calculous cholecystitis. POSTOPERATIVE DIAGNOSIS: Symptomatic chronic calculous cholecystitis. PROCEDURE: Laparoscopic cholecystectomy. SURGEON: Neha Lazar MD WOODENWARE ASSEMBLER: Daren Castillo APRN ANESTHESIA: General endotracheal. ESTIMATED BLOOD LOSS: Minimal. FINDINGS: Multiple small gallstones. DISPOSITION: The patient tolerated the procedure well. INDICATIONS: The patient is a 71-year-old male known to us. The patient has had issues with what he thought was reflux with pain in the epigastric region as well as to the right upper abdominal quadrant as well as abdominal bloating, distention and an overall feeling mild nausea; however, no vomiting. He underwent an EGD on 02/15/2022, which did show a 2.5 cm hiatal hernia. He also did have a mild distal esophageal stricture, which was balloon dilated. There was also a small type 1 gastric ulcer and he was placed on Protonix. The patient was treated; however, continued to have his stents and we schedule him for an ultrasound, which did show multiple gallstones. DESCRIPTION OF PROCEDURE: The patient was brought to the operating room, laid supine on the table. After adequate IV pain and sedative medications and general endotracheal intubation, the abdomen was prepped and draped in standard surgical fashion. A 0.5% Marcaine with epinephrine was used to anesthetize the overlying skin in the left upper abdominal quadrant and transverse skin incision was made using a #15 blade. An 0 silk suture was applied to the medial aspect of the incision for retraction and Veress needle inserted with a low opening pressure of 0 mmHg. The abdomen was then insufflated to 15 mmHg pressure. The Veress needle was removed and a 5 mm XL trocar placed followed by a 5 mm 45-degree angle laparoscope visualized in the peritoneal cavity. A 4-quadrant abdominal exploration was performed. There was mild hepatomegaly, but was visualized of the omentum, the small bowel and stomach appeared normal. There was no gallbladder wall edema. Under direct visualization, we then proceeded to place a supraumbilical 10 mm port after the skin and peritoneal lining were anesthetized using 0.5% Marcaine with epinephrine and a transverse skin incision made using a #15 blade. In a similar manner, a right upper abdominal quadrant 5 mm port was placed. The patient was then placed in reverse Trendelenburg position as well as planed right side up, left side down. The fundus of the gallbladder was then retracted anteriorly and superiorly. The hepatoduodenal ligament was then dissected using blunt dissection as well as electrocautery on the hook instrument as well as the [place] dissector. The entire critical view of safety was identified including the triangle of Calot as well as the cystic duct and artery as the only two structures going into the gallbladder as well as the cystic plate behind the proximal gallbladder. A time out was then taken and the cystic duct and artery were then clipped proximally and distally and cut with EndoShears. The gallbladder was then dissected off of the liver bed using cautery and the hook instrument with visualization and good hemostasis as well as no leaking ducts of Luschka. The gallbladder was then removed through the 10 mm port site using an EndoCatch bag. The 10 mm port site fascia and peritoneum were then closed under direct visualization using a Niranjan-Chivo device and 0 Vicryl suture. The abdomen was desufflated and remaining ports removed. All skin incisions were closed using 4-0 Monocryl running subcuticular sutures. Wounds were then cleaned and covered with Dermabond. The patient tolerated the procedure well. POSTOPERATIVE PLAN: We will start IV and oral pain medication as well as a clear liquid diet. Once he is tolerating clears with good pain control with oral pain medications, ambulating well, we will discharge him home where he will be instructed to do no heavy lifting or exertion for the next 2 weeks report. Job ID: [id number] DocumentID: [id number] Dictated Date: 02/28/2022 13:50:19 Certified Prosthetist Vice President Date: 02/28/2022 23:34:00 Dictated By: NEHA LAZAR MD
--- NOTE | 2022-03-02 11:45 | HISTORY AND PHYSICAL ---
ATTENDING PRIMARY CARE PHYSICIAN: Dr. Juve Lundberg. INDICATION: The patient 71-year-old male, who is known to us. He has had issues with dysphagia in the past as well as a history of peptic ulcer disease. On 11/11/2019, he underwent an EGD and was found to have a mild distal esophageal stricture and underwent a balloon dilatation. He was also found to have a hiatal hernia. There is 2.5 cm in size as well as a type 1 gastric ulcer. The colonoscopy showed a mild chronic stage II, external and internal hemorrhoids as well as mild rectal AV malformation and sigmoid diverticulosis. He is seen again recently for complaints of epigastric pain and pressure sensation, which he did report radiated to his left chest and arms and it usually occurred after eating. He is currently on a Protonix daily; however, continues to have symptoms. He denies any hematemesis or any coffee-ground emesis as well as no red blood per rectum or any dark tarry stools. He did have recent lab work performed and was found to have low iron levels as well as a mildly low hemoglobin at 9.9. His risk factors for peptic ulcer disease include 2 cups of coffee as well as occasional alcoholic beverage. On 02/15/2022, he underwent EGD with biopsy. Findings were reflux esophagitis grade B. Moderate size hiatal hernia, 3 cm in size. Mild to moderate gastritis with no formal ulcerations or any bleeding. Biopsies were negative for H. pylori as well as negative for Enciso's esophagus. On today's visit, he continues to have the epigastric pain, especially after eating. He denies any nausea or vomiting as well as no diarrhea or constipation. It was decided that due to his continued abdominal pain to proceed with a gallbladder ultrasound in which he was completed yesterday on 02/23/2022 and was found to have multiple gallstones. MEDICAL HISTORY: Type 2 diabetes mellitus, hypertension, iron deficiency anemia, gastroesophageal reflux disease, peptic ulcer disease. SURGICAL HISTORY: Abdominal hernia repair. ALLERGIES: No known drug allergies. MEDICATIONS: Aspirin 81 mg daily, hydrochlorothiazide 25 mg daily, Protonix 40 mg daily, amlodipine 10 mg daily, metformin 500 mg, olmesartan medoxomil 40 mg. SOCIAL HISTORY: Previous for tobacco smoker, 1 pack per day for 20 years, quit in 1992. Social for alcohol. FAMILY HISTORY: Brother, hypertension, diabetes. Father, hypertension, myocardial infarction. Mother, hypertension, myocardial infarction. REVIEW OF SYSTEMS: Well-nourished male in no acute distress. He is not experiencing any shortness of breath or difficulty breathing. No chest pain, palpitations or diaphoresis. No nausea or vomiting, but does report episodes of epigastric abdominal pain, especially after eating. No diarrhea or constipation. No red blood per rectum. No dark tarry stools. No fever or chills. No recent and no overt weight loss. All other review of systems negative. PHYSICAL EXAMINATION: CHEST: Clear, good breath sounds bilaterally. HEART: Regular, no murmurs. EXTREMITIES: No lower extremity edema. Negative Homans sign. HEENT: No scleral icterus. No cervical lymphadenopathy. ABDOMEN: Soft, nondistended. There is tenderness in the epigastric region with moderate to deep palpation. SKIN: Warm, dry and pink. NEUROLOGIC: Awake, alert and oriented x3. ASSESSMENT AND PLAN: A 71-year-old male with a symptomatic chronic calculous cholecystitis. The risks and benefits of the procedure as well as the procedure and home care instructions were explained to the patient. He verbalized understanding of instructions and agrees to proceed as planned. At this time, we will proceed with scheduling the patient for a laparoscopic cholecystectomy. Job ID: [id number] DocumentID: [id number] Dictated Date: 02/24/2022 09:28:39 Business Data Analyst Date: 02/24/2022 15:12:00 Dictated By: ASAD MONDRAGON APRN <Dictated by ASAD MONDRAGON APRN> <Electronically signed by ASAD MONDRAGON APRN> 02/27/22 0908 <Electronically signed by NEHA LAZAR MD> 02/28/22 1259 [facility] HE[facility] SYSTEMMarianna
== END 2022-02-28 16:30 | disposition home or self-care (01) ==
LOC: SDC 11:54
PROVIDERS: ATTEND Surgery
DX: K80.10 Calculus of gallbladder with chronic cholecystitis without obstruction (principal); Z79.899 Other long term (current) drug therapy; R16.0 Hepatomegaly, not elsewhere classified; Z87.11 Personal history of peptic ulcer disease; Z87.19 Personal history of other diseases of the digestive system; Z87.891 Personal history of nicotine dependence
CPT/HCPCS: 82947; 87081; 88304

== ENCOUNTER 2022-03-14 10:37 | Outpatient (CLI) | payer MEDICARE ==
[~2022-03-14] VITALS: Ht 172.7 cm; Wt 94.6 kg
[~2022-03-14 10:37] MED LIST changes: +HYDR-3817 PO
[2022-03-14] MEDS ORDERED: IOHEXOL 350 MG/ML 100 ML (OMNIPAQUE 350) VIAL IV ONE (10:45)
[2022-03-14] MEDS ORDERED: NS 100 ML (IVPB) BAG IV ONE (10:45)
[2022-03-14] MEDS ORDERED: HOLD METFORMIN - RECEIVED CONTRAST 20 ML VIAL IV SCH (10:45)
[2022-03-14 10:57] LABS: HEMATOCRIT 24 % (40-54); MEAN CORPUSCULAR HEMOGLOBIN 19 pg (25-34); MEAN CORPUSCULAR HGB CONC 28 g/dL (32-36); MEAN CORPUSCULAR VOLUME 66 fL (80-99); MEAN PLATELET VOLUME 9.7 fL (9.0-12.2); PLATELET COUNT 384 10^3/uL (130-400)
[2022-03-14 11:01] LABS: ALBUMIN 4.1 GM/DL (3.2-4.5); POTASSIUM 4.1 MMOL/L (3.6-5.0)
[2022-03-14 11:02] LABS: CALCIUM 9.6 MG/DL (8.5-10.1)
[2022-03-14 11:03] LABS: HEMOGLOBIN 6.7 g/dL (13.3-17.7); TOTAL PROTEIN 7.2 GM/DL (6.4-8.2)
[2022-03-14 11:05] LABS: BILIRUBIN,TOTAL 0.5 MG/DL (0.1-1.0)
[2022-03-14 11:07] LABS: CREATININE SERUM 0.95 MG/DL (0.60-1.30)
[2022-03-14 11:30] VITALS: BP 128/80
--- NOTE | 2022-03-14 11:45 | Diagnostic Imaging Report ---
PROCEDURE: CT abdomen and pelvis with and without contrast. TECHNIQUE: Precontrast acquisitions were acquired through the abdomen and pelvis. Multiple contiguous axial images were obtained through the abdomen and pelvis after the administration of intravenous contrast. Auto Exposure Controls were utilized during the CT exam to meet ALARA standards for radiation dose reduction. INDICATION: Abdominal pain. Shortness of breath. COMPARISON: Gallbladder ultrasound from 02/23/2022. FINDINGS: Partially visualized [id number] bilateral pleural effusions. Cholecystectomy. Small esophageal hiatal hernia. Infrarenal abdominal aortic aneurysm measuring 3.1 x 3.1 cm in diameter. Moderate colonic diverticulosis without evidence of active diverticulitis. Postoperative changes in the anterior abdominal wall, likely due to hernia repair. The liver, pancreas, spleen, adrenals, kidneys, collecting systems, bladder and appendix are negative. No free intraperitoneal air or fluid. No lymphadenopathy. No evidence of bowel obstruction. Chronic bilateral L5 pars defects with grade 1 anterolisthesis of L5 on S1. No acute osseous findings. IMPRESSION: 1. Partially visualized [id number] bilateral pleural effusions. 2. Small esophageal hiatal hernia. 3. Moderate colonic diverticulosis without evidence of active diverticulitis. 4. Infrarenal abdominal aortic aneurysm measuring 3.1 cm in diameter. Dictated by: Dictated on workstation # [id number]
[2022-03-14] MEDS ORDERED: NS IV 500 ML 500 ML ONE (12:02)
[2022-03-14 13:04] VITALS: BP 128/80
[2022-03-14 13:25] VITALS: BP 121/72
[2022-03-14 15:55] VITALS: BP 115/66
[2022-03-14] MEDS ORDERED: NS IV 500 ML 500 ML IV SCH (19:15)
== END 2022-03-14 16:35 | disposition home or self-care (01) ==
LOC: RAD 10:37
PROVIDERS: ATTEND Surgery
DX: K44.9 Diaphragmatic hernia without obstruction or gangrene (principal); K57.30 Diverticulosis of large intestine without perforation or abscess without bleeding; I71.43 Infrarenal abdominal aortic aneurysm, without rupture
CPT/HCPCS: 36430; 74178; 80053; 82728; 85027; 85379; 86850; 86900; 86901; 86920; P9016; 36415

== ENCOUNTER → 2022-03-16 | Outpatient (CLI) | payer MEDICARE ==
[2022-03-16 11:32] LABS: HEMOGLOBIN 7.4 g/dL (13.3-17.7)
== END ==
LOC: LAB 11:12
PROVIDERS: ATTEND Surgery
DX: D64.9 Anemia, unspecified (principal)
CPT/HCPCS: 36415; 85014; 85018

== ENCOUNTER → 2022-03-29 | Outpatient (CLI) | payer MEDICARE ==
[2022-03-29 13:39] LABS: ABSOLUTE RETIC # 98 10e9/uL (24-90); RETICULOCYTE % 2.49 % (0.50-2.40)
[2022-03-29 14:02] LABS: ELLIPT/OVALOCYTES MODERATE; EOSINOPHILS % (MANUAL) 14 %; HYPOCHROMASIA MARKED; LYMPHOCYTES % (MANUAL) 28 %; MICROCYTOSIS MODERATE; MONOCYTES % (MANUAL) 3 %; NEUTROPHILS % (MANUAL) 55 %
[2022-03-29 14:03] LABS: ACANTHOCYTES SLIGHT
== END ==
LOC: GIR 13:24
PROVIDERS: ATTEND Nurse Practitioner Family
DX: D64.9 Anemia, unspecified (principal)
CPT/HCPCS: 85007; 85045; 85055

== ENCOUNTER → 2022-08-04 | Outpatient (RCR) | payer MEDICARE | END | disposition home or self-care (01) | LOC: CR 08-02 09:39 | PROVIDERS: ATTEND Internal Medicine Cardiovascular Disease | DX: Z29.8 Encounter for other specified prophylactic measures (principal); Z95.2 Presence of prosthetic heart valve | CPT/HCPCS: 93798 ==

== ENCOUNTER → 2022-09-04 | Outpatient (RCR) | payer MEDICARE | END | disposition home or self-care (01) | LOC: CR 08-07 11:30 | PROVIDERS: ATTEND Internal Medicine Cardiovascular Disease | DX: Z29.8 Encounter for other specified prophylactic measures (principal); Z95.1 Presence of aortocoronary bypass graft; Z95.4 Presence of other heart-valve replacement | CPT/HCPCS: 93798 ==

== ENCOUNTER 2022-09-18 11:07 | Outpatient (RCR) | payer MEDICARE | END 2022-10-05 | disposition home or self-care (01) | LOC: CR 11:07 | PROVIDERS: ATTEND Internal Medicine Cardiovascular Disease | DX: Z29.8 Encounter for other specified prophylactic measures (principal) | CPT/HCPCS: 93798 ==

== ENCOUNTER 2022-12-01 11:35 | Outpatient (RCR) | payer MEDICARE | END 2022-12-05 | disposition home or self-care (01) | LOC: CR 11:35 | PROVIDERS: ATTEND Internal Medicine Cardiovascular Disease | DX: Z29.89 Encounter for other specified prophylactic measures (principal); Z95.2 Presence of prosthetic heart valve; Z95.1 Presence of aortocoronary bypass graft | CPT/HCPCS: 93798 ==